=== PATIENT | female | born 1945 | race Caucasian/White ===

== ENCOUNTER 2022-12-18 12:21 | Emergency (ER) | payer MEDICARE, SELFPAY ==
--- NOTE | ~2022-12-18 | CT_ITS ---
EXAMINATION: CT HEAD WITHOUT CONTRAST CLINICAL INFORMATION: Mental status change COMPARISON: None available. TECHNIQUE: Contiguous axial imaging was performed from the skull base to vertex without intravenous administration of contrast. This CT examination was performed using dose optimization techniques as appropriate, variously including the following: *Automated exposure control *Adjustment of mA and/or kV according to patient size (this includes techniques or standardized protocols for targeted exams where dose is matched to indication/reason for exam; i.e. extremities or head) *Use of iterative reconstruction technique DLP: 577 mGy-cm FINDINGS: No intracranial hemorrhage is seen. No abnormal extra-axial fluid collection. No significant mass effect or midline structure shift. Cantu-white matter interface is maintained. There is some prominence of ventricles, sulci, and cisterns consistent with generalized atrophy. Periventricular white matter low density seen consistent with microangiopathy. There is paranasal sinus disease present with opacification of ethmoid air cells left greater than right. There is near complete opacification of the left maxillary sinus. Mastoid air cells are aerated. CT/CT head/brain wo IV con IMPRESSION: No acute intracranial pathology. Atrophy with microangiopathy. Chronic sinusitis
--- NOTE | ~2022-12-18 | XR_ITS ---
EXAMINATION: XR CHEST CLINICAL INFORMATION: Mental status change COMPARISON: None available. TECHNIQUE: AP portable view of the chest was obtained. FINDINGS: There is some retrocardiac density present which may be related to atelectasis or pneumonitis. No pneumothorax or significant pleural effusion is appreciated. Heart normal size. No evidence of pulmonary edema. There is deformity of the proximal left humerus likely related to old healed fracture. There is some prominence of the left superior mediastinum with shift of trachea at the thoracic inlet to the right consistent with enlarged thyroid gland. XR/XR chest 1V IMPRESSION: Retrocardiac density which may relate to atelectasis or pneumonitis.
[2022-12-18 13:02] VITALS: BMI 24.0
[2022-12-18 13:19] VITALS: BP 141/75; PULSE 78; RESP 17; O2SAT 92
--- NOTE | 2022-12-18 13:24 | ECG_ITS ---
Test Reason : AMS Blood Pressure : / mmHG Vent. Rate : 080 BPM Atrial Rate : 080 BPM P-R Int : 126 ms QRS Dur : 114 ms QT Int : 338 ms P-R-T Axes : 042 -43 046 degrees QTc Int : 389 ms Normal sinus rhythm Left axis deviation Moderate voltage criteria for LVH, may be normal variant ( R in aVL , [place] product ) Septal infarct , age undetermined Abnormal ECG When compared with ECG of 06-FEB-2003 17:01, QRS duration has increased Nonspecific T wave abnormality, worse in Lateral leads Referred By: Yolanda King Electronically Signed By:Stephon Rueda
--- NOTE | 2022-12-18 13:26 | ED.GENADULT ---
HPI - General Adult General Chief complaint: Weakness Stated complaint: incresase lethargy weak snf per ems Time Seen by Provider: 12/18/22 13:15 Source: EMS and RN notes reviewed Mode of arrival: EMS Limitations: altered mental status (Advanced dementia.) History of Present Illness HPI narrative: [age] year female came in by EMS from a dementia/psych unit for increases lethargy and disorientation. Patient is disoriented, non historian at this exam patient is unable to provide meaningful history, however patient is answering no to headache, neck pain, chest pain abdominal pain, fever, chills, nausea, vomiting, or diarrhea. However reported by EMS from the halfway the patient been green sputum. Related Data Previous Rx's Medication Instructions Recorded amoxicillin 875 mg-potassium 1 tab PO BID #20 tabs 12/18/22 clavulanate 125 mg tablet doxycycline hyclate 100 mg tablet 100 mg PO BID #20 tabs 12/18/22 Allergies Allergy/AdvReac Type Severity Reaction Status Date / Time morphine Allergy Unknown Verified 07/21/16 00:00 Sulfa (Sulfonamide Allergy Unknown rash/swelli Verified 07/21/16 00:00 Antibiotics) ng morphine Allergy Unknown rash Uncoded 04/20/17 00:00 sulfa drugs Allergy Unknown redness in Uncoded 04/20/17 00:00 face Review of Systems Review of Systems: Yes Unobtainable due to mental condition (Dementia) [facility] Social History Social History Advance Directives: Yes Advance Directives on File: No Physical Exam ED Vital Signs: Vital Signs - 24 hr 12/18/22 13:19 Pulse Rate 78 Respiratory Rate 17 Blood Pressure 141/75 H Pulse Oximetry 92 Oxygen Delivery Method Room Air BMI result Body Mass Index 24.0 Vital signs have been reviewed as appeared to be correct. Blood pressure normal. Heart rate normal. Respiration rate normal. Temperature normal. Oxygen saturation normal. Appearance: Disoriented, lethargic, arousable to her name. No acute distress. Head: Normal external exam. Normocephalic. Atraumatic. No Faulkner signs noted. No raccoon eyes noted Eyes: PERRLA. EOMI. Conjunctiva and sclera normal. Eyelids normal. ENT: TM's Normal. Pharynx normal. Uvula midline. Moist mucous membranes. No trismus noted. No drooling noted. No muffled voice noted. Neck: Normal inspection. Neck supple. FROM. No adenopathy. Thyroid Normal. No meningeal signs. No neck mass noted. CVS: Normal heart rate and rhythm. Heart sound normal. No murmurs noted. Pulses normal throughout. Respiratory: No respiratory distress. Painless inspiration. Breath sounds normal. No wheezes/rales/rhonchi noted. Chest nontender. No accessory muscle usage noted or decreased air movement noted. Abdomen: Soft and nontender. Bowel sounds normal in all 4 quadrants. No distention noted. No organomegaly noted. No visible injury noted. Back: No CVA tenderness. Full range of motion noted. Skin: Skin warm and dry. Normal skin color. Normal skin turgor. No rashes/lesions/lacerations noted. Extremities: No lower extremity edema. Extremities exhibit normal range of motion. Extremities nontender. Neuro: Cranial nerve exam: II-XII are grossly intact No motor deficit. No sensory deficit. Reflexes normal. Course Course Course Narrative: 77-year-old female with advanced dementia reside in a dementia unit, found to have a pneumonia with no sepsis criteria, will start the patient on Augmentin and doxycycline for 10 days. Medications Administered Discontinued Medications Generic Name Dose Route Start Last Admin Trade Name Freq PRN Reason Stop Dose Admin Piperacillin Sod/Tazobactam 50 mls @ 100 mls/hr 12/18/22 14:18 12/18/22 14:44 Sod 3.375 gm/ Sodium Chloride IV 12/18/22 14:47 100 mls/hr ONCE ONE Administration Medical Decision Making Differential Diagnosis Differential Diagnoses: The differential diagnosis associated with the presentation includes (Pneumonia, UTI, electrolyte abnormalities, severe anemia, intracranial pathology.) Admission/Observation Consideration of admission/observation: Escalation of care including admission/observation considered Lab Data MDM Lab Attestation statement: I reviewed the patient's lab results. 12/18/22 13:42 12/18/22 13:42 Labs: Lab Results 12/18/22 12/18/22 12/18/22 Range/Units 13:42 13:42 13:42 WBC 7.7 (4.8-10.8) X10*3/uL RBC 3.89 L (4.20-5.50) X10*6/uL Hgb 11.7 L (12.0-16.0) g/dl Hct 36.4 L (37.0-47.0) % MCV 93.6 (80.0-98.0) fL MCH 30.1 (27.0-33.0) pg MCHC 32.1 (31.0-35.0) g/dl RDW 13.8 (11.0-16.0) % Plt Count 277 (160-400) X10*3/uL MPV 8.1 L (9.4-12.3) fL Immature Gran % (Auto) 0.4 (0.0-0.4) % Neut % (Auto) 71.5 (45-73) % Lymph % (Auto) 17.9 L (20-40) % Franklin % (Auto) 8.5 (2-11) % Eos % (Auto) 1.3 (0-4) % Baso % (Auto) 0.4 (0-2) % Lymph # (Auto) 1.4 (1.2-4.9) X10*3/uL [place] # (Auto) 0.7 (0.1-1.2) X10*3/uL Eos # (Auto) 0.1 (0.0-0.4) X10*3/uL Baso # (Auto) 0.0 (0.0-0.2) X10*3/uL Abs Immat Gran (auto) 0.03 (0.00-0.03) X10*3/uL Absolute Neuts (auto) 5.5 (2.0-8.3) x10*3/uL Absolute Nucleated RBC 0.000 (0.0-0.012) X10*3/uL Nucleated RBC % (auto) 0.0 (0.0-0.2) /100WBC Sodium 143 (135-145) mmol/L Potassium 4.4 (3.3-5.1) mmol/L Chloride 107 (96-108) mmol/L Carbon Dioxide 30 H (22-29) mmol/L Anion Gap 10 L (12-20) BUN 15 (9-16) mg/dL Creatinine 0.77 (0.5-1.4) mg/dL Estim Creat Clear Calc 53.6 Estimated GFR > 60 Random Glucose 97 (60-115) mg/dL Lactic Acid (0.5-2.0) mmol/L Calcium 9.7 (8.4-10.2) mg/dL Total Bilirubin 0.6 (0.0-1.0) mg/dL Direct Bilirubin 0.2 (0.0-0.5) mg/dL AST 18 (5-31) U/L ALT 21 (0-31) U/L Alkaline Phosphatase 174 H (39-117) U/L Troponin I High Sens 8.0 (<3.5-17.0) ng/L B-Natriuretic Peptide (<100) pg/mL Total Protein 6.2 L (6.5-8.0) g/dL Albumin 3.7 (3.5-5.0) g/dL Lipase 38 (8-78) U/L Influenza Type A (PCR) (Negative) Influenza Type B (PCR) (Negative) RSV RNA Qual (PCR) (Negative) SARS-CoV-2 RNA (RT-PCR) (Negative) 12/18/22 12/18/22 12/18/22 Range/Units 13:42 13:42 14:36 WBC (4.8-10.8) X10*3/uL RBC (4.20-5.50) X10*6/uL Hgb (12.0-16.0) g/dl Hct (37.0-47.0) % MCV (80.0-98.0) fL MCH (27.0-33.0) pg MCHC (31.0-35.0) g/dl RDW (11.0-16.0) % Plt Count (160-400) X10*3/uL MPV (9.4-12.3) fL Immature Gran % (Auto) (0.0-0.4) % Neut % (Auto) (45-73) % Lymph % (Auto) (20-40) % Franklin % (Auto) (2-11) % Eos % (Auto) (0-4) % Baso % (Auto) (0-2) % Lymph # (Auto) (1.2-4.9) X10*3/uL Franklin # (Auto) (0.1-1.2) X10*3/uL Eos # (Auto) (0.0-0.4) X10*3/uL Baso # (Auto) (0.0-0.2) X10*3/uL Abs Immat Gran (auto) (0.00-0.03) X10*3/uL Absolute Neuts (auto) (2.0-8.3) x10*3/uL Absolute Nucleated RBC (0.0-0.012) X10*3/uL Nucleated RBC % (auto) (0.0-0.2) /100WBC Sodium (135-145) mmol/L Potassium (3.3-5.1) mmol/L Chloride (96-108) mmol/L Carbon Dioxide (22-29) mmol/L Anion Gap (12-20) BUN (9-16) mg/dL Creatinine (0.5-1.4) mg/dL Estim Creat Clear Calc Estimated GFR Random Glucose (60-115) mg/dL Lactic Acid 0.9 (0.5-2.0) mmol/L Calcium (8.4-10.2) mg/dL Total Bilirubin (0.0-1.0) mg/dL Direct Bilirubin (0.0-0.5) mg/dL AST (5-31) U/L ALT (0-31) U/L Alkaline Phosphatase (39-117) U/L Troponin I High Sens (<3.5-17.0) ng/L B-Natriuretic Peptide 20 (<100) pg/mL Total Protein (6.5-8.0) g/dL Albumin (3.5-5.0) g/dL Lipase (8-78) U/L Influenza Type A (PCR) NEGATIVE (Negative) Influenza Type B (PCR) NEGATIVE (Negative) RSV RNA Qual (PCR) NEGATIVE (Negative) SARS-CoV-2 RNA (RT-PCR) NEGATIVE (Negative) Independent Interpretation I performed an independent interpretation of an: Plain X-Ray (Lungs: Retrocardiac density which may represent infiltrate.) and CT Scan (Head: No acute intracranial pathology.) Radiology Impression Discussion of test interpretation with radiology: I have reviewed the radiologist's reading. Independent Historian Clinical information obtained from an independent historian. History obtained from or confirmed by: Other ([facility] history.) Discharge Plan Discharge Clinical Impression: Pneumonia, Dementia Patient Disposition: Xfer [facility] Instructions: Pneumonia (ED) Prescriptions: New amoxicillin-pot clavulanate 875-125 mg tablet 1 tab PO BID Qty: 20 0RF doxycycline hyclate 100 mg tablet 100 mg PO BID Qty: 20 0RF
[2022-12-18 13:48] LABS: MANUAL DIFF FLAG NO
[2022-12-18 13:51] LABS: Basophils Percent Auto 0.4 % (0-2); Eosinophils Absolute Auto 0.1 X10*3/uL (0.0-0.4); Eosinophils Percent Auto 1.3 % (0-4); Hematocrit 36.4 % (37.0-47.0); Hemoglobin 11.7 g/dl (12.0-16.0); Imm Gran Abs Auto 0.03 X10*3/uL (0.00-0.03); Imm Gran Pct Auto 0.4 % (0.0-0.4); Lymphocytes Absolute Auto 1.4 X10*3/uL (1.2-4.9); Lymphocytes Percent Auto 17.9 % (20-40); Mean Corpuscular HGB Conc 32.1 g/dl (31.0-35.0); Mean Corpuscular Hemoglobin 30.1 pg (27.0-33.0); Mean Corpuscular Volume 93.6 fL (80.0-98.0); Mean Platelet Volume 8.1 fL (9.4-12.3); Monocytes Absolute Auto 0.7 X10*3/uL (0.1-1.2); Monocytes Percent Auto 8.5 % (2-11); Neutrophils Absolute Auto 5.5 x10*3/uL (2.0-8.3); Neutrophils Percent Auto 71.5 % (45-73); Platelet Count 277 X10*3/uL (160-400); Red Blood Count 3.89 X10*6/uL (4.20-5.50); Red Cell Distribution Width 13.8 % (11.0-16.0); White Blood Count 7.7 X10*3/uL (4.8-10.8)
[2022-12-18 14:08] LABS: Alanine Aminotransferase 21 U/L (0-31); Albumin Level 3.7 g/dL (3.5-5.0); Alkaline Phosphatase 174 U/L (39-117); Anion Gap 10 (12-20); Aspartate Amino Transferase 18 U/L (5-31); Bilirubin Direct 0.2 mg/dL (0.0-0.5); Bilirubin Total 0.6 mg/dL (0.0-1.0); Blood Urea Nitrogen 15 mg/dL (9-16); Calcium 9.7 mg/dL (8.4-10.2); Carbon Dioxide 30 mmol/L (22-29); Chloride 107 mmol/L (96-108); Creatinine Clr Calc Pharmacy 53.6; Estimated Glomerular Filt Rate > 60; Glucose Random 97 mg/dL (60-115); Lipase 38 U/L (8-78); Potassium 4.4 mmol/L (3.3-5.1); Sodium 143 mmol/L (135-145); Total Protein 6.2 g/dL (6.5-8.0)
[2022-12-18 14:13] LABS: B Type Natriuretic Peptide 20 pg/mL (<100)
[2022-12-18 14:31] LABS: Influenza A PCR NEGATIVE (Negative); Influenza B PCR NEGATIVE (Negative); Resp Syncy Virus RNA Qual PCR NEGATIVE (Negative); SARS COV2 PCR INHOUSE NEGATIVE (Negative)
[2022-12-18] MEDS: Piperacillin Sodium/Tazobactam 3.375 GM in 0.9 % Sodium Chloride 50 ML IV (14:44)
[2022-12-18 14:54] LABS: Lactic Acid 0.9 mmol/L (0.5-2.0)
[2022-12-18 15:51] VITALS: BP 117/59; PULSE 75; RESP 18; O2SAT 93
[2022-12-18] MEDS: Doxycycline Monohydrate 100 MG CAPSULE PO (16:40)
== END 2022-12-18 18:24 | disposition skilled nursing facility (03) ==
PROVIDERS: Emergency Provider Emergency Medicine
DX: J18.9 Pneumonia, unspecified organism (principal); F03.90 Unspecified dementia, unspecified severity, without behavioral disturbance, psychotic disturbance, mood disturbance, and anxiety; Z20.822 Contact with and (suspected) exposure to COVID-19; Z20.828 Contact with and (suspected) exposure to other viral communicable diseases
CPT/HCPCS: 0241U; 36415; 70450; 71045; 80048; 80076; 83605; 83690; 83880; 84484; 85025; 87040; 93005; 96365; 99284; J2543

== ENCOUNTER 2023-01-24 19:23 | Emergency (ER) | payer MEDICARE, SELFPAY ==
--- NOTE | ~2023-01-24 | XR_ITS ---
EXAMINATION: XR ABDOMEN KUB CLINICAL INDICATION: Fecal impaction COMPARISON: None available. TECHNIQUE: AP view of the abdomen. FINDINGS: There is a large volume of stool present throughout the colon. No evidence of bowel obstruction. Calcified uterine fibroids are present. Phleboliths are noted in the pelvis. Degenerative changes are present in the spine with scoliosis convex to the right. XR/XR KUB IMPRESSION: Large stool burden throughout the colon. No evidence of bowel obstruction.
--- NOTE | ~2023-01-24 | CT_ITS ---
EXAMINATION: CT HEAD WITHOUT CONTRAST CLINICAL INFORMATION: Altered mental status. COMPARISON: CT head from 12/18/2022. TECHNIQUE: Contiguous axial imaging was performed from the skull base to vertex without intravenous administration of contrast. This CT examination was performed using dose optimization techniques as appropriate, variously including the following: *Automated exposure control. *Adjustment of mA and/or kV according to patient size (this includes techniques or standardized protocols for targeted exams where dose is matched to indication/reason for exam; i.e. extremities or head). *Use of iterative reconstruction technique. DLP: 531 mGy-cm FINDINGS: There is chronic encephalomalacia within the right middle frontal gyrus with associated volume loss. No additional loss of downey-white matter differentiation. No evidence of acute intracranial hemorrhage. Scattered and partially confluent hypoattenuation in the periventricular and deep white matter are consistent with moderate microangiopathy. Proportional prominence of the ventricles and sulcal spaces without evidence of obstructive hydrocephalus. No abnormal mass effect or midline shift. No extra-axial fluid collections. Calcific atherosclerotic disease of the intracranial internal carotid and vertebral arteries. No hyperdense vessel sign. No acute soft tissue or osseous abnormalities. Mild mucosal thickening of the paranasal sinuses. The mastoid air cells and middle ear cavities are clear. Bilateral lens extractions. CT/CT head/brain wo IV con IMPRESSION: 1. No evidence of acute intracranial hemorrhage or edematous territorial infarction. 2. Small chronic region of encephalomalacia of the right middle frontal gyrus. Moderate underlying microangiopathy and generalized cerebral volume loss.
[2023-01-24 19:28] VITALS: BP 144/80; PULSE 92; O2SAT 97
--- NOTE | 2023-01-24 19:37 | ECG_ITS ---
Test Reason : AMS Blood Pressure : / mmHG Vent. Rate : 079 BPM Atrial Rate : 079 BPM P-R Int : 132 ms QRS Dur : 110 ms QT Int : 380 ms P-R-T Axes : 043 -41 055 degrees QTc Int : 435 ms Normal sinus rhythm Left axis deviation Moderate voltage criteria for LVH, may be normal variant ( R in aVL , [place] product ) Nonspecific T wave abnormality Abnormal ECG When compared with ECG of 18-DEC-2022 13:30, No significant change was found Referred By: Generic ED Physician Electronically Signed By:EDA LOVE
[2023-01-24 19:41] VITALS: BP 137/70; PULSE 80; RESP 16; TEMP 37.2; O2SAT 93; BMI 31.7
--- NOTE | 2023-01-24 19:44 | ED_ITS ---
HPI - Altered Mental Status General Chief Complaint: Altered Mental Status Stated Complaint: AMS Time Seen by Provider: 01/24/23 19:42 Source: family and EMS Mode of arrival: EMS Limitations: altered mental status History of Present Illness HPI narrative: Patient with severe dementia came from assisted for lower abdominal discomfort patient is forgetful per EMS patient was having blank stare and having slurred speech but per family patient is severely demented and which is normal for her no fever no vomiting no diarrhea Related Data Previous Rx's Medication Instructions Recorded amoxicillin 875 mg-potassium 1 tab PO BID #20 tabs 12/18/22 clavulanate 125 mg tablet doxycycline hyclate 100 mg tablet 100 mg PO BID #20 tabs 12/18/22 cefuroxime axetil 250 mg tablet 250 mg PO BID 7 days #14 tabs 01/25/23 polyethylene glycol 3350 17 17 g PO DAILY #510 grams 01/25/23 gram/dose oral powder (Miralax) Allergies Allergy/AdvReac Type Severity Reaction Status Date / Time morphine Allergy Unknown Verified 07/21/16 00:00 Sulfa (Sulfonamide Allergy Unknown rash/swelli Verified 07/21/16 00:00 Antibiotics) ng morphine Allergy Unknown rash Uncoded 04/20/17 00:00 sulfa drugs Allergy Unknown redness in Uncoded 04/20/17 00:00 face Review of Systems Review of Systems: Yes Unobtainable due to mental status PMFSH Social History Social History Advance Directives: No Advance Directives Information Provided: Yes Physical Exam ED Vital Signs: Vital Signs - 24 hr 01/24/23 19:41 01/24/23 23:28 Temperature 99.0 F Pulse Rate 80 86 Respiratory Rate 16 16 Blood Pressure 137/70 152/77 H Pulse Oximetry 93 97 Oxygen Delivery Method Room Air Room Air BMI result Body Mass Index 31.7 Appearance: Alert. Oriented X1-2. No acute distress. Eyes: PERRLA, No Nystagmus ENT: Pharynx normal. Oral Mucosa moist Neck: Normal inspection. Neck supple. CVS: Normal heart rate and rhythm. Pulses normal. Respiratory: No respiratory distress. Equal air entry bilateral, no wheezing/rales/rhonchi Abdomen: Soft mild suprapubic tenderness, Bowel sounds are present, no mass palpable, no CVA tenderness Skin: Skin warm and dry. Normal skin color. Normal skin turgor. Extremities: No lower extremity edema. No calf tenderness Neuro: Oriented X 1-2. No motor deficit. No sensory deficit.No cerebellar signs , cranial nerves II-XII intact Medications Administered Discontinued Medications Generic Name Dose Route Start Last Admin Trade Name Freq PRN Reason Stop Dose Admin Ceftriaxone Sodium 1 gm/ 50 mls @ 100 mls/hr 01/24/23 23:42 01/24/23 23:59 Sodium Chloride IV 01/25/23 00:11 100 mls/hr ONCE ONE Administration Medical Decision Making Medical Decision Making [facility] Narrative: Patient with severe dementia with lower abdominal pain noticed to have significant UTI without any leukocytosis also does have constipation will give dose of Rocephin discharge patient back to assisted on Ceftin advised to continue stool softener Lab Data [facility] Lab Attestation statement: I reviewed the patient's lab results. 01/24/23 19:58 01/24/23 19:58 Labs: Lab Results 01/24/23 01/24/23 01/24/23 Range/Units 19:40 19:58 19:58 WBC 5.5 (4.8-10.8) X10*3/uL RBC 3.67 L (4.20-5.50) X10*6/uL Hgb 10.8 L (12.0-16.0) g/dl Hct 33.8 L (37.0-47.0) % MCV 92.1 (80.0-98.0) fL MCH 29.4 (27.0-33.0) pg MCHC 32.0 (31.0-35.0) g/dl RDW 14.4 (11.0-16.0) % Plt Count 253 (160-400) X10*3/uL MPV 8.2 L (9.4-12.3) fL Immature Gran % (Auto) 0.4 (0.0-0.4) % Neut % (Auto) 56.2 (45-73) % Lymph % (Auto) 29.2 (20-40) % [place] % (Auto) 11.0 (2-11) % Eos % (Auto) 2.7 (0-4) % Baso % (Auto) 0.5 (0-2) % Lymph # (Auto) 1.6 (1.2-4.9) X10*3/uL [place] # (Auto) 0.6 (0.1-1.2) X10*3/uL Eos # (Auto) 0.2 (0.0-0.4) X10*3/uL Baso # (Auto) 0.0 (0.0-0.2) X10*3/uL Abs Immat Gran (auto) 0.02 (0.00-0.03) X10*3/uL Absolute Neuts (auto) 3.1 (2.0-8.3) x10*3/uL Absolute Nucleated RBC 0.000 (0.0-0.012) X10*3/uL Nucleated RBC % (auto) 0.0 (0.0-0.2) /100WBC Sodium 140 (135-145) mmol/L Potassium 4.4 (3.3-5.1) mmol/L Chloride 103 (96-108) mmol/L Carbon Dioxide 26 (22-29) mmol/L Anion Gap 15 (12-20) BUN 14 (9-16) mg/dL Creatinine 0.84 (0.5-1.4) mg/dL Estim Creat Clear Calc 55.3 Estimated GFR > 60 POC Glucose 138 H (60-115) mg/dL Random Glucose 127 H (60-115) mg/dL Lactic Acid (0.5-2.0) mmol/L Calcium 9.9 (8.4-10.2) mg/dL Troponin I High Sens (<3.5-17.0) ng/L Urine Color Urine Appearance Urine pH (5.0-9.0) Ur Specific [place] (1.005-1.025) Urine Protein (Neg-Trace) mg/dL Urine Glucose (UA) (Negative) mg/dL Urine Ketones (Negative) mg/dL Urine Blood (Negative) Urine Nitrite (Negative) Ur Leukocyte Esterase (Negative) Urine RBC (0-2) /HPF Urine WBC (0-5) /HPF Ur Squamous Epith Cells (0-2) /HPF Urine Bacteria (None Seen) Hyaline Casts (0-2) /LPF 01/24/23 01/24/23 01/24/23 Range/Units 19:58 21:25 23:16 WBC (4.8-10.8) X10*3/uL RBC (4.20-5.50) X10*6/uL Hgb (12.0-16.0) g/dl Hct (37.0-47.0) % MCV (80.0-98.0) fL MCH (27.0-33.0) pg MCHC (31.0-35.0) g/dl RDW (11.0-16.0) % Plt Count (160-400) X10*3/uL MPV (9.4-12.3) fL Immature Gran % (Auto) (0.0-0.4) % Neut % (Auto) (45-73) % Lymph % (Auto) (20-40) % [place] % (Auto) (2-11) % Eos % (Auto) (0-4) % Baso % (Auto) (0-2) % Lymph # (Auto) (1.2-4.9) X10*3/uL [place] # (Auto) (0.1-1.2) X10*3/uL Eos # (Auto) (0.0-0.4) X10*3/uL Baso # (Auto) (0.0-0.2) X10*3/uL Abs Immat Gran (auto) (0.00-0.03) X10*3/uL Absolute Neuts (auto) (2.0-8.3) x10*3/uL Absolute Nucleated RBC (0.0-0.012) X10*3/uL Nucleated RBC % (auto) (0.0-0.2) /100WBC Sodium (135-145) mmol/L Potassium (3.3-5.1) mmol/L Chloride (96-108) mmol/L Carbon Dioxide (22-29) mmol/L Anion Gap (12-20) BUN (9-16) mg/dL Creatinine (0.5-1.4) mg/dL Estim Creat Clear Calc Estimated GFR POC Glucose (60-115) mg/dL Random Glucose (60-115) mg/dL Lactic Acid 1.2 (0.5-2.0) mmol/L Calcium (8.4-10.2) mg/dL Troponin I High Sens 4.1 (<3.5-17.0) ng/L Urine Color Straw Urine Appearance Turbid Urine pH 7.0 (5.0-9.0) Ur Specific [place] 1.015 (1.005-1.025) Urine Protein 30 (1+) H (Neg-Trace) mg/dL Urine Glucose (UA) Negative (Negative) mg/dL Urine Ketones Negative (Negative) mg/dL Urine Blood Moderate (2+) H (Negative) Urine Nitrite Negative (Negative) Ur Leukocyte Esterase Large (3+) H (Negative) Urine RBC 3-5 H (0-2) /HPF Urine WBC 11-20 H (0-5) /HPF Ur Squamous Epith Cells >20 (0-2) /HPF Urine Bacteria 3+ (None Seen) Hyaline Casts 0-2 (0-2) /LPF Discharge Plan Discharge Clinical Impression: Acute UTI, Constipation Patient Disposition: Xfer [facility] Transfer Details: Workup showed constipation and UTI Instructions: Constipation (ED), Urinary Tract Infection in Women (ED) Additional Instructions: Take Antibiotic as prescribed Drink plenty of fluid Prescriptions: New cefuroxime axetil 250 mg tablet 250 mg PO BID 7 Days Qty: 14 0RF polyethylene glycol 3350 [Miralax] 17 gram/dose powder 17 g PO DAILY Qty: 510 0RF No Action amoxicillin-pot clavulanate 875-125 mg tablet 1 tab PO BID Qty: 20 0RF doxycycline hyclate 100 mg tablet 100 mg PO BID Qty: 20 0RF
[2023-01-24 19:47] LABS: Glucose, Whole Blood 138 mg/dL (60-115)
[2023-01-24 20:05] LABS: MANUAL DIFF FLAG NO
[2023-01-24 20:24] LABS: Basophils Percent Auto 0.5 % (0-2); Eosinophils Absolute Auto 0.2 X10*3/uL (0.0-0.4); Eosinophils Percent Auto 2.7 % (0-4); Hematocrit 33.8 % (37.0-47.0); Hemoglobin 10.8 g/dl (12.0-16.0); Imm Gran Abs Auto 0.02 X10*3/uL (0.00-0.03); Imm Gran Pct Auto 0.4 % (0.0-0.4); Lymphocytes Absolute Auto 1.6 X10*3/uL (1.2-4.9); Lymphocytes Percent Auto 29.2 % (20-40); Mean Corpuscular Hemoglobin 29.4 pg (27.0-33.0); Mean Corpuscular Volume 92.1 fL (80.0-98.0); Mean Platelet Volume 8.2 fL (9.4-12.3); Monocytes Absolute Auto 0.6 X10*3/uL (0.1-1.2); Neutrophils Absolute Auto 3.1 x10*3/uL (2.0-8.3); Neutrophils Percent Auto 56.2 % (45-73); Platelet Count 253 X10*3/uL (160-400); Red Blood Count 3.67 X10*6/uL (4.20-5.50); Red Cell Distribution Width 14.4 % (11.0-16.0); White Blood Count 5.5 X10*3/uL (4.8-10.8)
[2023-01-24 20:28] LABS: Anion Gap 15 (12-20); Blood Urea Nitrogen 14 mg/dL (9-16); Calcium 9.9 mg/dL (8.4-10.2); Carbon Dioxide 26 mmol/L (22-29); Chloride 103 mmol/L (96-108); Creatinine Clr Calc Pharmacy 55.3; Estimated Glomerular Filt Rate > 60; Glucose Random 127 mg/dL (60-115); Potassium 4.4 mmol/L (3.3-5.1); Sodium 140 mmol/L (135-145); Troponin-I High Sensitivity 4.1 ng/L (<3.5-17.0)
[2023-01-24 21:41] LABS: Lactic Acid 1.2 mmol/L (0.5-2.0)
[2023-01-24 23:28] VITALS: BP 152/77; PULSE 86; RESP 16; O2SAT 97
[2023-01-24 23:29] LABS: Appearance Urine Turbid; Color Urine Straw; Glucose Urine UA Negative (Negative); Leukocyte Esterase Urine Large (3+) (Negative); Nitrite Urine Negative (Negative); Specific Gravity - Urine 1.015 (1.005-1.025); UMIC TRIGGER UACC YES; Urine Blood Moderate (2+) (Negative); Urine Ketones Negative (Negative); Urine Protein 30 (1+) mg/dL (Neg-Trace)
--- NOTE | 2023-01-24 23:29 | MHC.EDTECH ---
THIS PCT ASSUMED CARE OF PT AT 2300 ,VITAlS SIGN TAKEN ,URINE SAMPLE COLLECTED AND SENT TO LAB ,PATIENT WAS INCONIENT OF URINE ,CARE GIVEN ,BEDDING CHANGE ,PURE WICK IN PLACE ,PT IS VERY RESTLESS ,RN AWARE ,PT FRIEND AT BEDSIDE .
[2023-01-24 23:38] LABS: UACC Culture Trigger YES
[2023-01-24 23:39] LABS: Bacteria Urine 3+ (None Seen); Hyaline Casts Urine 0-2 /LPF (0-2); Squamous Epithelial Cell Urine >20 /HPF (0-2)
[2023-01-24] MEDS: cefTRIAXone sodium 1 GM in 0.9 % Sodium Chloride 50 ML IV (23:59)
--- NOTE | 2023-01-25 01:08 | MHC.EDTECH ---
call out to cortney to book transport back to [facility] [place] [facility] at [phone]
[2023-01-25] MEDS: Milk of Magnesia 30 ML ORAL.SUSP PO (01:14)
[2023-01-25 02:00] VITALS: BP 145/76; PULSE 98; RESP 16; TEMP 36.8; O2SAT 97
[2023-01-25 07:15] VITALS: BP 142/79; PULSE 89; RESP 16; TEMP 36.8; O2SAT 92
--- NOTE | 2023-01-25 07:56 | PC.NURSE ---
PT WAS MEDICATED WITH FIRST ORAL DOSE OF ANTIBIOTICS, SHE WAS INCONTINENT OF URINE, BED AND PATIENT WERE CHANGED. SHE IS ALERT AND AWARE, TOLERATING PO INTAKE. AWAITING TRANSPORT BACK TO FACILITY
== END 2023-01-25 08:49 | disposition skilled nursing facility (03) ==
PROVIDERS: Emergency Provider Internal Medicine
DX: K59.00 Constipation, unspecified (principal); N39.0 Urinary tract infection, site not specified; R10.30 Lower abdominal pain, unspecified
CPT/HCPCS: 36415; 51701; 70450; 74018; 80048; 81001; 82947; 83605; 84484; 85025; 87086; 93005; 96365; 99284; 99285; J0696

== ENCOUNTER 2023-03-23 19:47 | Emergency (ER) | payer MEDICARE, SELFPAY ==
--- NOTE | ~2023-03-23 | CT_ITS ---
EXAMINATION: CT ABDOMEN AND PELVIS WITHOUT CONTRAST CLINICAL INFORMATION: Abdominal pain with question of appendicitis COMPARISON: Renal ultrasound 05/22/2022 TECHNIQUE: Multidetector volumetric imaging was performed from the superior aspect of the liver through the pubic symphysis. Sagittal and coronal reformatted images were obtained on the technologist's workstation. This CT examination was performed using dose optimization techniques as appropriate, variously including the following: *Automated exposure control *Adjustment of mA and/or kV according to patient size (this includes techniques or standardized protocols for targeted exams where dose is matched to indication/reason for exam; i.e. extremities or head) *Use of iterative reconstruction technique DLP: 674 mGy-cm FINDINGS: LUNG BASES: There is bibasilar atelectasis. LIVER, GALLBLADDER, AND BILIARY TREE: The liver is normal in size, shape, and attenuation. No focal hepatic lesion or biliary ductal dilatation is present. The gallbladder is unremarkable with no evidence of radiopaque gallstones, gallbladder wall thickening, or obvious pericholecystic inflammatory changes. PANCREAS: Unremarkable. SPLEEN: Unremarkable. ADRENAL GLANDS: There is a water density 1.3 cm nodule in the left adrenal gland consistent with a benign adenoma and needs no additional imaging or follow-up. KIDNEYS AND URETERS: The kidneys are normal in size, shape, and attenuation. No hydronephrosis, hydroureter, or calculi seen. Multiple bilateral benign Bosniak class I renal cysts are noted, the largest measuring 5.7 cm at the upper pole on the right which require no additional imaging or follow-up. There is a benign right lower pole 1.7 cm Bosniak class II hyperattenuating cyst present which also requires no further imaging or follow-up. No solid renal masses are seen. BLADDER: Unremarkable. GASTROINTESTINAL TRACT: The small and large bowel are unremarkable. The appendix is not seen but there is no evidence of appendicitis evidence of appendicitis. ABDOMINAL WALL: No significant hernia is appreciated. LYMPH NODES: No retroperitoneal lymphadenopathy. VASCULAR: Calcific atherosclerotic change present in the aorta and iliofemoral vessels without aneurysm. PELVIC VISCERA: A pessary is present. And anteverted uterus tilted to the right may be present. Coarse calcifications most likely in fibroids. OSSEOUS STRUCTURES: Mild scoliosis convex to the right. There is generalized osteopenia and some mild degenerative changes in spine. CT/CT abdomen pelvis wo IV con IMPRESSION: A cause for the patient's diffuse abdominal pain has not been found. The appendix is not seen but there is no evidence of appendicitis. Other incidental findings as described above. Fleischner guidelines were followed.
[2023-03-23 19:49] VITALS: BP 156/90; PULSE 85; O2SAT 94
[2023-03-23 19:56] VITALS: BP 129/76; PULSE 81; RESP 18; TEMP 37.3; O2SAT 94; BMI 25.1
[2023-03-23 20:28] LABS: MANUAL DIFF FLAG NO
[2023-03-23 20:30] LABS: Basophils Percent Auto 0.3 % (0-2); Eosinophils Absolute Auto 0.2 X10*3/uL (0.0-0.4); Eosinophils Percent Auto 2.2 % (0-4); Hematocrit 33.6 % (37.0-47.0); Hemoglobin 10.8 g/dl (12.0-16.0); Imm Gran Abs Auto 0.03 X10*3/uL (0.00-0.03); Imm Gran Pct Auto 0.3 % (0.0-0.4); Lymphocytes Absolute Auto 1.4 X10*3/uL (1.2-4.9); Lymphocytes Percent Auto 15.5 % (20-40); Mean Corpuscular HGB Conc 32.1 g/dl (31.0-35.0); Mean Corpuscular Hemoglobin 29.5 pg (27.0-33.0); Mean Corpuscular Volume 91.8 fL (80.0-98.0); Mean Platelet Volume 8.1 fL (9.4-12.3); Monocytes Absolute Auto 0.9 X10*3/uL (0.1-1.2); Monocytes Percent Auto 10.2 % (2-11); Neutrophils Absolute Auto 6.3 x10*3/uL (2.0-8.3); Neutrophils Percent Auto 71.5 % (45-73); Platelet Count 222 X10*3/uL (160-400); Red Blood Count 3.66 X10*6/uL (4.20-5.50); Red Cell Distribution Width 14.1 % (11.0-16.0); White Blood Count 8.8 X10*3/uL (4.8-10.8)
[2023-03-23 20:32] LABS: Appearance Urine Clear; Color Urine Yellow; Glucose Urine UA Negative (Negative); Leukocyte Esterase Urine Negative (Negative); Nitrite Urine Negative (Negative); PH 6.5 (5.0-9.0); Specific Gravity - Urine 1.015 (1.005-1.025); Urine Blood Negative (Negative); Urine Ketones Negative (Negative); Urine Protein Negative (Neg-Trace)
[2023-03-23 20:54] LABS: Alanine Aminotransferase 21 U/L (0-31); Albumin Level 3.6 g/dL (3.5-5.0); Alkaline Phosphatase 162 U/L (39-117); Anion Gap 14 (12-20); Aspartate Amino Transferase 20 U/L (5-31); Bilirubin Total 0.3 mg/dL (0.0-1.0); Blood Urea Nitrogen 10 mg/dL (9-16); Calcium 9.6 mg/dL (8.4-10.2); Carbon Dioxide 27 mmol/L (22-29); Chloride 103 mmol/L (96-108); Creatinine Clr Calc Pharmacy 56.7; Estimated Glomerular Filt Rate > 60; Glucose Random 125 mg/dL (60-115); Potassium 3.9 mmol/L (3.3-5.1); Sodium 140 mmol/L (135-145); Total Protein 6.5 g/dL (6.5-8.0)
--- NOTE | 2023-03-23 21:43 | ED.ABDPAIN ---
HPI - Abdominal Pain General Chief Complaint: Abdominal Pain Stated Complaint: LOWER BACK PAIN Time Seen by Provider: 03/23/23 21:36 Source: patient, family (Healthcare proxy.) and EMS Mode of arrival: EMS Limitations: physical limitation History of Present Illness HPI narrative: 77-year-old female came in by EMS from dementia/psych Unit for evaluation of abdominal pain. Patient patient is a poor historian secondary to advanced Alzheimer dementia staff was trying to put the patient a bed patient was complaining of lower abdominal pain which is dressed by the patient, patient in the emergency department setting in mild distress due to lower abdominal pain, reportedly no nausea, no vomiting, no diarrhea last bowel movement was 2 days ago. Patient had similar symptoms in the past when she had UTI. No history of abdominal surgery. Related Data Home Medications Medication Instructions Recorded Confirmed amlodipine 10 mg tablet 10 mg PO DAILY 03/23/23 03/23/23 atorvastatin 20 mg tablet 20 mg PO DAILY 03/23/23 03/23/23 cholecalciferol (vitamin D3) 25 25 mcg PO DAILY 03/23/23 03/23/23 mcg (1,000 unit) tablet cyanocobalamin (vitamin B-12) 2,500 mcg PO DAILY 03/23/23 03/23/23 2,500 mcg tablet duloxetine 60 mg capsule,delayed 60 mg PO DAILY 03/23/23 03/23/23 release mirabegron 50 mg tablet,extended 50 mg PO DAILY 03/23/23 03/23/23 release 24 hr (Myrbetriq) risperidone 0.5 mg tablet 0.5 mg PO BID 03/23/23 03/23/23 vitamin A-vitamin C-vit E-min 1 tab PO DAILY 03/23/23 03/23/23 tablet Allergies Allergy/AdvReac Type Severity Reaction Status Date / Time morphine Allergy Unknown Verified 07/21/16 00:00 Sulfa (Sulfonamide Allergy Unknown rash/swelli Verified 07/21/16 00:00 Antibiotics) ng morphine Allergy Unknown rash Uncoded 04/20/17 00:00 sulfa drugs Allergy Unknown redness in Uncoded 04/20/17 00:00 face Review of Systems Review of Systems Yes Unobtainable due to mental status PMFSH Social History Social History Alcohol intake: never Smoked in Last 30 Days: No Use of substances other than those prescribed or required for medical reasons: No Advance Directives: Yes Advance Directives Information Provided: Yes Physical Exam ED Vital Signs: Vital Signs - 24 hr 03/23/23 19:56 Temperature 99.1 F Pulse Rate 81 Respiratory Rate 18 Blood Pressure 129/76 Pulse Oximetry 94 Oxygen Delivery Method Room Air BMI result Body Mass Index 25.1 Vital signs have been reviewed as appeared to be correct. Blood pressure normal. Heart rate normal. Respiration rate normal. Temperature normal. Oxygen saturation normal. Appearance: No acute distress. Head: Normal external exam. Normocephalic. Atraumatic. No Faulkner signs noted. No raccoon eyes noted Eyes: PERRLA. EOMI. Conjunctiva and sclera normal. Eyelids normal. ENT: TM's Normal. Pharynx normal. Uvula midline. Moist mucous membranes. No trismus noted. No drooling noted. No muffled voice noted. Neck: Normal inspection. Neck supple. FROM. No adenopathy. Thyroid Normal. No meningeal signs. No neck mass noted. CVS: Normal heart rate and rhythm. Heart sound normal. No murmurs noted. Pulses normal throughout. Respiratory: No respiratory distress. Painless inspiration. Breath sounds normal. No wheezes/rales/rhonchi noted. Chest nontender. No accessory muscle usage noted or decreased air movement noted. Abdomen: Soft and nontender. Bowel sounds normal in all 4 quadrants. No distention noted. No organomegaly noted. No visible injury noted. Back: No CVA tenderness. Full range of motion noted. Skin: Skin warm and dry. Normal skin color. Normal skin turgor. No rashes/lesions/lacerations noted. Extremities: No lower extremity edema. Extremities exhibit normal range of motion. Extremities nontender. Neuro: Cranial nerve exam: II-XII are grossly intact No motor deficit. No sensory deficit. Reflexes normal. Course Course Course Narrative: 77-year-old female with advanced dementia and poor historian came in for abdominal pain, labs are unremarkable, CT of the abdomen and pelvis not significant for intra-abdominal pathology. Will discharge to the group home. Medical Decision Making Differential Diagnosis Differential Diagnoses: The differential diagnosis associated with the presentation includes (Acute appendicitis, colitis, diverticulitis, pancreatitis, electrolyte abnormalities, anemia, UTI.) Admission/Observation Consideration of admission/observation: Escalation of care including admission/observation considered Lab Data MDM Lab Attestation statement: I reviewed the patient's lab results. 03/23/23 20:18 03/23/23 20:18 Labs: Lab Results 03/23/23 03/23/23 03/23/23 Range/Units 20:18 20:18 20:18 WBC 8.8 (4.8-10.8) X10*3/uL RBC 3.66 L (4.20-5.50) X10*6/uL Hgb 10.8 L (12.0-16.0) g/dl Hct 33.6 L (37.0-47.0) % MCV 91.8 (80.0-98.0) fL MCH 29.5 (27.0-33.0) pg MCHC 32.1 (31.0-35.0) g/dl RDW 14.1 (11.0-16.0) % Plt Count 222 (160-400) X10*3/uL MPV 8.1 L (9.4-12.3) fL Immature Gran % (Auto) 0.3 (0.0-0.4) % Neut % (Auto) 71.5 (45-73) % Lymph % (Auto) 15.5 L (20-40) % [place] % (Auto) 10.2 (2-11) % Eos % (Auto) 2.2 (0-4) % Baso % (Auto) 0.3 (0-2) % Lymph # (Auto) 1.4 (1.2-4.9) X10*3/uL [place] # (Auto) 0.9 (0.1-1.2) X10*3/uL Eos # (Auto) 0.2 (0.0-0.4) X10*3/uL Baso # (Auto) 0.0 (0.0-0.2) X10*3/uL Abs Immat Gran (auto) 0.03 (0.00-0.03) X10*3/uL Absolute Neuts (auto) 6.3 (2.0-8.3) x10*3/uL Absolute Nucleated RBC 0.000 (0.0-0.012) X10*3/uL Nucleated RBC % (auto) 0.0 (0.0-0.2) /100WBC Sodium 140 (135-145) mmol/L Potassium 3.9 (3.3-5.1) mmol/L Chloride 103 (96-108) mmol/L Carbon Dioxide 27 (22-29) mmol/L Anion Gap 14 (12-20) BUN 10 (9-16) mg/dL Creatinine 0.82 (0.5-1.4) mg/dL Estim Creat Clear Calc 56.7 Estimated GFR > 60 Random Glucose 125 H (60-115) mg/dL Calcium 9.6 (8.4-10.2) mg/dL Total Bilirubin 0.3 (0.0-1.0) mg/dL AST 20 (5-31) U/L ALT 21 (0-31) U/L Alkaline Phosphatase 162 H (39-117) U/L Total Protein 6.5 (6.5-8.0) g/dL Albumin 3.6 (3.5-5.0) g/dL Urine Color Yellow Urine Appearance Clear Urine pH 6.5 (5.0-9.0) Ur Specific [place] 1.015 (1.005-1.025) Urine Protein Negative (Neg-Trace) mg/dL Urine Glucose (UA) Negative (Negative) mg/dL Urine Ketones Negative (Negative) mg/dL Urine Blood Negative (Negative) Urine Nitrite Negative (Negative) Ur Leukocyte Esterase Negative (Negative) Independent Interpretation I performed an independent interpretation of an: CT Scan (Abdomen pelvis: No acute pathology.) Radiology Impression Discussion of test interpretation with radiology: I have reviewed the radiologist's reading. (A cause for the patient's diffuse abdominal pain has not been found. The appendix is not seen but there is no evidence of appendicitis. Other incidental findings as described above. ) Chronic Conditions Patient?s care impacted by: Other (Severe dementia.) Discharge Plan Discharge Clinical Impression: Abdominal pain Patient Disposition: er [facility] Instructions: Abdominal Pain (ED) Prescriptions: No Action atorvastatin 20 mg tablet 20 mg PO DAILY amlodipine 10 mg tablet 10 mg PO DAILY risperidone 0.5 mg tablet 0.5 mg PO BID Ocuvite Tablet 1 tab PO DAILY duloxetine 60 mg capsule,delayed release(DR/EC) 60 mg PO DAILY cholecalciferol (vitamin D3) 25 mcg (1,000 unit) Tablet 25 mcg PO DAILY Myrbetriq 50 mg tablet extended release 24 hr 50 mg PO DAILY cyanocobalamin (vitamin B-12) 2,500 mcg Tablet 2,500 mcg PO DAILY
--- NOTE | 2023-03-23 22:11 | PHA.MEDREC ---
Pharmacy Consult ? Medication Reconciliation Pharmacy has completed the medication reconciliation. Patient had medication list from the [facility]. All match claim history except Vesicare has not been filled and is only a prescription medications therefore did not include on med rec. Rosanna Quezada, RadhaD
--- NOTE | 2023-03-23 23:54 | MHC.EDTECH ---
call out to [facility] at [phone] to book transport for pt back to sn[facility], estimated eta given was 0130
[2023-03-24 00:19] VITALS: BP 149/74; PULSE 84; RESP 17; TEMP 37.1; O2SAT 92
== END 2023-03-24 02:27 | disposition skilled nursing facility (03) ==
PROVIDERS: Emergency Provider Emergency Medicine
DX: M54.50 Low back pain, unspecified (principal); R10.9 Unspecified abdominal pain; R10.2 Pelvic and perineal pain; Z79.899 Other long term (current) drug therapy
CPT/HCPCS: 36415; 74176; 80053; 81003; 85025; 99284

== ENCOUNTER 2023-03-24 19:18 | Emergency (ER) | payer MEDICARE, SELFPAY ==
[2023-03-24 19:25] VITALS: BP 141/76; BP 148/86; PULSE 81; PULSE 91; RESP 17; TEMP 37.2; O2SAT 94; O2SAT 95; BMI 26.7
--- NOTE | 2023-03-24 22:21 | ED.GENADULT ---
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) Mode of arrival: EMS Limitations: altered mental status History of Present Illness HPI narrative: Patient history of severe dementia was seen here yesterday for questionable abdominal pain without vomiting or diarrhea had full workup done including CT scan labs and urine were normal comes back as complaining of pain again not sure where the pain is not in any distress with stable vital when examined patient denied any pain Related Data Home Medications Medication Instructions Recorded Confirmed amlodipine 10 mg tablet 10 mg PO DAILY 03/23/23 03/23/23 atorvastatin 20 mg tablet 20 mg PO DAILY 03/23/23 03/23/23 cholecalciferol (vitamin D3) 25 25 mcg PO DAILY 03/23/23 03/23/23 mcg (1,000 unit) tablet cyanocobalamin (vitamin B-12) 2,500 mcg PO DAILY 03/23/23 03/23/23 2,500 mcg tablet duloxetine 60 mg capsule,delayed 60 mg PO DAILY 03/23/23 03/23/23 release mirabegron 50 mg tablet,extended 50 mg PO DAILY 03/23/23 03/23/23 release 24 hr (Myrbetriq) risperidone 0.5 mg tablet 0.5 mg PO BID 03/23/23 03/23/23 vitamin A-vitamin C-vit E-min 1 tab PO DAILY 03/23/23 03/23/23 tablet Previous Rx's Medication Instructions Recorded acetaminophen 325 mg tablet 650 mg PO Q6H PRN pain #60 tabs 03/25/23 (Tylenol) Allergies Allergy/AdvReac Type Severity Reaction Status Date / Time morphine Allergy Unknown Verified 07/21/16 00:00 Sulfa (Sulfonamide Allergy Unknown rash/swelli Verified 07/21/16 00:00 Antibiotics) ng morphine Allergy Unknown rash Uncoded 04/20/17 00:00 sulfa drugs Allergy Unknown redness in Uncoded 04/20/17 00:00 face Review of Systems Review of Systems: Yes all other systems are reviewed and are negative [facility] Social History Social History Alcohol intake: never Advance Directives: No Advance Directives Information Provided: No Physical Exam ED Vital Signs: Vital Signs - 24 hr 03/24/23 19:25 03/24/23 23:19 Temperature 98.9 F 98.8 F Pulse Rate 81 90 Respiratory Rate 17 18 Blood Pressure 141/76 H 155/78 H Pulse Oximetry 94 93 Oxygen Delivery Method Room Air Room Air BMI result Body Mass Index 26.7 Appearance: Alert. Oriented X1. No acute distress. Eyes: PERRLA, No Nystagmus ENT: Pharynx normal. Oral Mucosa moist Neck: Normal inspection. Neck supple. CVS: Normal heart rate and rhythm. Pulses normal. Respiratory: No respiratory distress. Equal air entry bilateral, no wheezing/rales/rhonchi Abdomen: Soft and nontender. Bowel sounds are present, no mass palpable, no CVA tenderness Skin: Skin warm and dry. Normal skin color. Normal skin turgor. Extremities: No lower extremity edema. No calf tenderness Neuro: Oriented X 1- moving all 4 extremities Medical Decision Making Medical Decision Making MDM Narrative: Patient with stable vitals with recent dental workup negative no focal findings noticed during this visit will discharge patient back to skilled nursing advised to give Tylenol for pain Discharge Plan Discharge Clinical Impression: Dementia Patient Disposition: Home, Self-Care Instructions: Dementia (ED) Additional Instructions: Cause of nonspecific pain is not clear Previous workup was normal May use Tylenol 650 mg every 6 hours as needed for pain Prescriptions: New acetaminophen [Tylenol] 325 mg tablet 650 mg PO Q6H PRN (Reason: pain) Qty: 60 0RF No Action atorvastatin 20 mg tablet 20 mg PO DAILY amlodipine 10 mg tablet 10 mg PO DAILY risperidone 0.5 mg tablet 0.5 mg PO BID Ocuvite Tablet 1 tab PO DAILY duloxetine 60 mg capsule,delayed release(DR/EC) 60 mg PO DAILY cholecalciferol (vitamin D3) 25 mcg (1,000 unit) Tablet 25 mcg PO DAILY Myrbetriq 50 mg tablet extended release 24 hr 50 mg PO DAILY cyanocobalamin (vitamin B-12) 2,500 mcg Tablet 2,500 mcg PO DAILY Interventions: ED Discharge Assessment Last Done: 03/25/23 00:30 Discharge Date/Time: 03/25/23 00:31
[2023-03-24 23:19] VITALS: BP 155/78; PULSE 90; RESP 18; TEMP 37.1; O2SAT 93
--- NOTE | 2023-03-25 00:03 | MHC.EDTECH ---
Call out to [facility] to book BLS transport back to [facility]. ETA of 25 minutes was given by dispatch
== END 2023-03-25 00:31 | disposition home or self-care (01) ==
PROVIDERS: Emergency Provider Internal Medicine
DX: F03.90 Unspecified dementia, unspecified severity, without behavioral disturbance, psychotic disturbance, mood disturbance, and anxiety (principal); M79.605 Pain in left leg; I10 Essential (primary) hypertension; Z79.899 Other long term (current) drug therapy
CPT/HCPCS: 99283

== ENCOUNTER 2023-04-04 08:21 | Emergency (ER) | payer MEDICARE, SELFPAY ==
--- NOTE | ~2023-04-04 | CT_ITS ---
EXAMINATION: CT HEAD WITHOUT CONTRAST CLINICAL INFORMATION: History dementia fall unknown loss of consciousness COMPARISON: CT head from 01/24/2023 TECHNIQUE: Contiguous axial imaging was performed from the skull base to vertex without intravenous administration of contrast. This CT examination was performed using dose optimization techniques as appropriate, variously including the following: *Automated exposure control *Adjustment of mA and/or kV according to patient size (this includes techniques or standardized protocols for targeted exams where dose is matched to indication/reason for exam; i.e. extremities or head) *Use of iterative reconstruction technique DLP: 901 mGy-cm FINDINGS: There is no evidence of acute intracranial hemorrhage or territorial infarction. Chronic white matter small vessel ischemic changes. No abnormal mass effect or midline shift is seen. Cantu to white matter differentiation is well preserved. No extra-axial fluid collections are identified. The ventricles are normal in size. There is no abnormal attenuation within the brain parenchyma. The osseous structures and soft tissues are normal. The mastoid air cells and visualized portions of the paranasal sinuses are well aerated. Vertebrobasilar atherosclerotic calcifications. CT/CT cervical spine wo IV con IMPRESSION: 1. No acute intracranial pathology. 2. Chronic white matter small vessel ischemic changes. EXAMINATION: Noncontrast CT scan of the cervical spine. INDICATION: Status post fall COMPARISON: None. TECHNIQUE: Helical, multidetector axial images were obtained from the occiput to the upper thorax. Coronal and sagittal reformats of the cervical spine were provided for interpretation. DLP: 901 mGy-cm FINDINGS: No acute fractures or dislocations of the cervical spine are seen. Reversal of the normal cervical curvature centered at C4-C5. Grade 1 anterolisthesis of C4 on C5. Very slight grade 1 retrolisthesis of C5 on C6. Moderate multilevel degenerative changes greatest at C5-C6. Anatomic alignment and positioning of the vertebral bodies and posterior elements is noted. The atlantoaxial joint and craniovertebral articulations are normal without evidence of subluxation. There is no prevertebral soft tissue swelling. The thyroid gland and visualized portions of the lung apices and mediastinum are unremarkable. IMPRESSION: 1. No acute visible fracture or dislocation. 2. Reversal of the normal cervical curvature centered at C4-C5. 3. Grade 1 anterolisthesis of C4 on C5. 4. Very slight grade 1 retrolisthesis of C5 on C6. 5. Moderate multilevel degenerative changes greatest at C5-C6.
--- NOTE | ~2023-04-04 | XR_ITS ---
EXAMINATION: XR CHEST CLINICAL INFORMATION: Fall COMPARISON: Previous chest x-ray December 2022 TECHNIQUE: Frontal view of the chest was obtained. FINDINGS: The cardiac and mediastinal contours are stable. The lungs are clear. No pleural effusion or pneumothorax. Degenerative changes of the spine and shoulders. No fracture appreciated. XR/XR chest 1V IMPRESSION: No evidence for acute disease in the chest.
--- NOTE | 2023-04-04 08:30 | ECG_ITS ---
Test Reason : weakness Blood Pressure : / mmHG Vent. Rate : 082 BPM Atrial Rate : 082 BPM P-R Int : 134 ms QRS Dur : 116 ms QT Int : 390 ms P-R-T Axes : 052 -44 075 degrees QTc Int : 455 ms Sinus rhythm with occasional Premature ventricular complexes Left axis deviation Left ventricular hypertrophy with QRS widening ( R in aVL , René product ) Nonspecific T wave abnormality Abnormal ECG When compared with ECG of 24-JAN-2023 19:37, Premature ventricular complexes are now Present Nonspecific T wave abnormality no longer evident in Inferior leads Referred By: Beatrice Thompson Electronically Signed By:SOPHIA CARMEN
--- NOTE | 2023-04-04 08:31 | ED.FALL ---
HPI - Fall General Chief Complaint: Fall Stated Complaint: UNWITT FALL, -THINNERS, +COLLAR Time Seen by Provider: 04/04/23 08:22 Source: patient and EMS Mode of arrival: EMS Limitations: altered mental status History of Present Illness HPI Narrative: 77 yo female with history of dementia, HTN, HLD not on AC therapy here after being found down on the ground. Patient unable to provide HPI. Fall was unwitnessed. Unknown downtime. Coming from the [facility] memory care unit Per nursing patient has had 3 falls in the last few weeks Related Data Home Medications Medication Instructions Recorded Confirmed amlodipine 10 mg tablet 10 mg PO DAILY 03/23/23 03/23/23 atorvastatin 20 mg tablet 20 mg PO DAILY 03/23/23 03/23/23 cholecalciferol (vitamin D3) 25 25 mcg PO DAILY 03/23/23 03/23/23 mcg (1,000 unit) tablet cyanocobalamin (vitamin B-12) 2,500 mcg PO DAILY 03/23/23 03/23/23 2,500 mcg tablet duloxetine 60 mg capsule,delayed 60 mg PO DAILY 03/23/23 03/23/23 release mirabegron 50 mg tablet,extended 50 mg PO DAILY 03/23/23 03/23/23 release 24 hr (Myrbetriq) risperidone 0.5 mg tablet 0.5 mg PO BID 03/23/23 03/23/23 vitamin A-vitamin C-vit E-min 1 tab PO DAILY 03/23/23 03/23/23 tablet Previous Rx's Medication Instructions Recorded acetaminophen 325 mg tablet 650 mg PO Q6H PRN pain #60 tabs 03/25/23 (Tylenol) Allergies Allergy/AdvReac Type Severity Reaction Status Date / Time morphine Allergy Unknown Unknown Verified 04/04/23 08:36 Sulfa (Sulfonamide Allergy Unknown rash/swelli Verified 04/04/23 08:36 Antibiotics) ng morphine Allergy Unknown rash Uncoded 04/04/23 08:36 sulfa drugs Allergy Unknown redness in Uncoded 04/04/23 08:36 face Review of Systems Review of Systems: Yes Unobtainable due to mental status Neurologic: Reports confusion Psychiatric: Psychiatric: Reports confusion PMFSH Past Medical History Attestation statement: The following information was validated with the patient. Source: old records reviewed and nursing notes reviewed Social History Social History Alcohol intake: never Advance Directives: Yes Advance Directives on File: Yes Advance Directives Date on File: 01/26/23 Physical Exam Vital Signs: Vital Signs: Last Vital Signs Temp 97.4 F 04/04/23 08:36 Pulse 78 04/04/23 10:38 Resp 16 04/04/23 08:36 BP 153/76 H 04/04/23 10:38 Pulse Ox 92 04/04/23 08:36 O2 Del Method Room Air 04/04/23 08:36 BMI result Body Mass Index 30.7 Const: General: alert and confusion Orientation/consciousness: confusion Limitations: altered mental status HEENT: Head: Yes normal to inspection, No contusion and No raccoon eyes Ears: hearing grossly normal bilaterally Eyes: General: appearance normal, both eyes and all related structures Pupils: Equal, round and reactive pupils present Neck: Other: Unable to assess ROM-cervical collar in place Neck: Yes normal visual inspection Chest: Chest palpation & inspection: normal inspection of the chest Resp: Effort & Inspection: normal respiratory effort Auscultation: clear to auscultation bilaterally Cardio: Rate: regular rate Rhythm: regular rhythm Peripheral pulses: Peripheral pulses 2+ throughout GI: Inspection: Yes normal to inspection Palpation (GI): Soft to palpation and nontender Skin: General skin exam: no rashes or lesions noted Neuro: General: moves all extremities, confusion and Unable to assess gait Cranial nerves: Yes Equal, round and reactive pupils present, Yes Normal facial strength present and Yes Midline tongue present Gait exam (Neuro): Unable to assess gait Sensory Exam: Normal double simultaneous stimulation for sensation Extrem: General: Yes normal to inspection, Yes no pedal edema and Yes no calf tenderness Course Course Course Narrative: 1040-Unable to participate in orthostatics Reevaluation(s) Reevaluation #1: 1124-imaging is unremarkable. Labs and urine are unremarkable. EKG shows no ischemic changes. Patient is at her mental status baseline. Plan for discharge back to her Memory Care Unit. Family has been updated. Medical Decision Making Medical Decision Making MDM Narrative: 77 yo female with history of dementia, HTN, HLD not on AC therapy here after being found down on the ground. Patient unable to provide HPI. Fall was unwitnessed. Unknown downtime.? Coming from the [facility] unit? Unable to obtain any HPI, patient unable to provide ROS, PE very limited Alert, confused, no focal neuro findings. Abdomen soft/nontender, no palpable chest tenderness, pelvis stable. Will obtain labs, UA, COVID screen, Ct head/cervical spine, EKG Differential Diagnosis Differential Diagnoses: The differential diagnosis associated with the presentation includes Anemia, electrolyte abnormality, mechanical fall, ACS, ICH/CVA/skull fracture, syncope, orthostatic hypotension, UTI/PNA Low concern for intra-abdominal/thoracic trauma Admission/Observation Consideration of admission/observation: Escalation of care including admission/observation considered Reviewed w/u with POA at the bedside, no medical reason for admission, patient has full services at the [facility] and all are in agreement for transfer back to the [facility] Lab Data MDM Lab Attestation statement: I reviewed the patient's lab results. Mildly elevated cpk, can orally hydrate, otherwise labs unremarkable 04/04/23 08:51 04/04/23 08:51 Labs: Lab Results 04/04/23 04/04/23 04/04/23 Range/Units 08:51 08:51 08:57 WBC 7.6 (4.8-10.8) X10*3/uL RBC 4.32 (4.20-5.50) X10*6/uL Hgb 12.8 (12.0-16.0) g/dl Hct 39.4 (37.0-47.0) % MCV 91.2 (80.0-98.0) fL MCH 29.6 (27.0-33.0) pg MCHC 32.5 (31.0-35.0) g/dl RDW 14.5 (11.0-16.0) % Plt Count 348 D (160-400) X10*3/uL MPV 8.8 L (9.4-12.3) fL Immature Gran % (Auto) 0.7 H (0.0-0.4) % Neut % (Auto) 76.3 H (45-73) % Lymph % (Auto) 14.5 L (20-40) % [place] % (Auto) 6.3 (2-11) % Eos % (Auto) 1.7 (0-4) % Baso % (Auto) 0.5 (0-2) % Lymph # (Auto) 1.1 L (1.2-4.9) X10*3/uL [place] # (Auto) 0.5 (0.1-1.2) X10*3/uL Eos # (Auto) 0.1 (0.0-0.4) X10*3/uL Baso # (Auto) 0.0 (0.0-0.2) X10*3/uL Abs Immat Gran (auto) 0.05 H (0.00-0.03) X10*3/uL Absolute Neuts (auto) 5.8 (2.0-8.3) x10*3/uL Absolute Nucleated RBC 0.000 (0.0-0.012) X10*3/uL Nucleated RBC % (auto) 0.0 (0.0-0.2) /100WBC Sodium (135-145) mmol/L Potassium (3.3-5.1) mmol/L Chloride (96-108) mmol/L Carbon Dioxide (22-29) mmol/L Anion Gap (12-20) BUN (9-16) mg/dL Creatinine (0.5-1.4) mg/dL Estim Creat Clear Calc Estimated GFR Random Glucose (60-115) mg/dL Calcium (8.4-10.2) mg/dL Magnesium (1.6-2.6) mg/dL Total Bilirubin (0.0-1.0) mg/dL Direct Bilirubin (0.0-0.5) mg/dL AST (5-31) U/L ALT (0-31) U/L Alkaline Phosphatase (39-117) U/L Total Creatine Kinase (26-140) U/L Troponin I High Sens (<3.5-17.0) ng/L Total Protein (6.5-8.0) g/dL Albumin (3.5-5.0) g/dL Urine Color Yellow Urine Appearance Cloudy Urine pH 7.0 (5.0-9.0) Ur Specific [place] 1.015 (1.005-1.025) Urine Protein Trace (Neg-Trace) mg/dL Urine Glucose (UA) Negative (Negative) mg/dL Urine Ketones Trace (Negative) mg/dL Urine Blood Negative (Negative) Urine Nitrite Negative (Negative) Ur Leukocyte Esterase Trace H (Negative) Urine RBC 0-2 (0-2) /HPF Urine WBC 6-10 H (0-5) /HPF Ur Squamous Epith Cells 0-2 (0-2) /HPF Urine Bacteria 4+ (None Seen) Hyaline Casts 0-2 (0-2) /LPF COVID-19 (NELI) Negative (Negative) COVID-19 Clin Com See Note 04/04/23 04/04/23 Range/Units 10:47 10:47 WBC (4.8-10.8) X10*3/uL RBC (4.20-5.50) X10*6/uL Hgb (12.0-16.0) g/dl Hct (37.0-47.0) % MCV (80.0-98.0) fL MCH (27.0-33.0) pg MCHC (31.0-35.0) g/dl RDW (11.0-16.0) % Plt Count (160-400) X10*3/uL MPV (9.4-12.3) fL Immature Gran % (Auto) (0.0-0.4) % Neut % (Auto) (45-73) % Lymph % (Auto) (20-40) % [place] % (Auto) (2-11) % Eos % (Auto) (0-4) % Baso % (Auto) (0-2) % Lymph # (Auto) (1.2-4.9) X10*3/uL [place] # (Auto) (0.1-1.2) X10*3/uL Eos # (Auto) (0.0-0.4) X10*3/uL Baso # (Auto) (0.0-0.2) X10*3/uL Abs Immat Gran (auto) (0.00-0.03) X10*3/uL Absolute Neuts (auto) (2.0-8.3) x10*3/uL Absolute Nucleated RBC (0.0-0.012) X10*3/uL Nucleated RBC % (auto) (0.0-0.2) /100WBC Sodium 143 (135-145) mmol/L Potassium 4.0 (3.3-5.1) mmol/L Chloride 108 (96-108) mmol/L Carbon Dioxide 23 (22-29) mmol/L Anion Gap 16 (12-20) BUN 15 (9-16) mg/dL Creatinine 0.67 (0.5-1.4) mg/dL Estim Creat Clear Calc 79.0 Estimated GFR > 60 Random Glucose 103 (60-115) mg/dL Calcium 10.3 H D (8.4-10.2) mg/dL Magnesium 2.1 (1.6-2.6) mg/dL Total Bilirubin 0.5 (0.0-1.0) mg/dL Direct Bilirubin 0.1 (0.0-0.5) mg/dL AST 31 (5-31) U/L ALT 31 (0-31) U/L Alkaline Phosphatase 173 H (39-117) U/L Total Creatine Kinase 229 H (26-140) U/L Troponin I High Sens 7.9 D (<3.5-17.0) ng/L Total Protein 7.4 (6.5-8.0) g/dL Albumin 3.7 (3.5-5.0) g/dL Urine Color Urine Appearance Urine pH (5.0-9.0) Ur Specific [place] (1.005-1.025) Urine Protein (Neg-Trace) mg/dL Urine Glucose (UA) (Negative) mg/dL Urine Ketones (Negative) mg/dL Urine Blood (Negative) Urine Nitrite (Negative) Ur Leukocyte Esterase (Negative) Urine RBC (0-2) /HPF Urine WBC (0-5) /HPF Ur Squamous Epith Cells (0-2) /HPF Urine Bacteria (None Seen) Hyaline Casts (0-2) /LPF COVID-19 (NELI) (Negative) COVID-19 Clin Com Independent Interpretation I performed an independent interpretation of an: EKG, Plain X-Ray and CT Scan Interpretation: I independently reviewed the EKG which shows NSR with occasional PVCs LVH Nonspecific ST changes-same as EKG 01/24/[address], Normal QRS, Normal QT I independently reviewed the CT head/Ct cervical spine, CXR and agree with rad report Radiology Impression Discussion of test interpretation with radiology: I have reviewed the radiologist's reading. Radiologist Impression: FINDINGS: There is no evidence of acute intracranial hemorrhage or territorial infarction. Chronic white matter small vessel ischemic changes. No abnormal mass effect or midline shift is seen. Cantu to white matter differentiation is well preserved. No extra-axial fluid collections are identified. The ventricles are normal in size. There is no abnormal attenuation within the brain parenchyma. The osseous structures and soft tissues are normal. The mastoid air cells and visualized portions of the paranasal sinuses are well aerated. Vertebrobasilar atherosclerotic calcifications. ? CT/CT cervical spine wo IV con IMPRESSION: 1.? No acute intracranial pathology. 2.? Chronic white matter small vessel ischemic changes. ? EXAMINATION: Noncontrast CT scan of the cervical spine. ? INDICATION: Status post fall ? COMPARISON: None. ? TECHNIQUE:? Helical, multidetector axial images were obtained from the occiput to the upper thorax. Coronal and sagittal reformats of the cervical spine were provided for interpretation. ? DLP: 901 mGy-cm ? FINDINGS: No acute fractures or dislocations of the cervical spine are seen. Reversal of the normal cervical curvature centered at C4-C5. Grade 1 anterolisthesis of C4 on C5. Very slight grade 1 retrolisthesis of C5 on C6. Moderate multilevel degenerative changes greatest at C5-C6. Anatomic alignment and positioning of the vertebral bodies and posterior elements is noted. The atlantoaxial joint and craniovertebral articulations are normal without evidence of subluxation. There is no prevertebral soft tissue swelling. ? The thyroid gland and visualized portions of the lung apices and mediastinum are unremarkable. ? IMPRESSION: 1.? No acute visible fracture or dislocation. 2.? Reversal of the normal cervical curvature centered at C4-C5. 3.? Grade 1 anterolisthesis of C4 on C5. 4.? Very slight grade 1 retrolisthesis of C5 on C6. 5.? Moderate multilevel degenerative changes greatest at C5-C6. ? [address] [address] XRay Report Signed Patient: Nazia Downs MR#: [id number] : 1945 Acct:[id number] Age/Sex: 77 / F ADM Date: 04/04/23 Loc: HO.ED Attending Dr: Ordering Physician: Beatrice Jade NP Date of Service: 09/02/23 Procedure(s): XR chest 1V Accession Number(s): [id number] cc: Physician,Unknown ; Beatrice Jade NP~ EXAMINATION: XR CHEST CLINICAL INFORMATION: Fall COMPARISON: Previous chest x-ray December 2022 TECHNIQUE: Frontal view of the chest was obtained. FINDINGS: The cardiac and mediastinal contours are stable. The lungs are clear. No pleural effusion or pneumothorax. Degenerative changes of the spine and shoulders. No fracture appreciated. XR/XR chest 1V IMPRESSION: No evidence for acute disease in the chest. Independent Historian Clinical information obtained from an independent historian. History obtained from or confirmed by: EMS Discharge Plan Discharge Clinical Impression: Fall Patient Disposition: Xfer SNF Transfer Details: [facility] Instructions: Fall Prevention for Older Adults (ED) Prescriptions: No Action atorvastatin 20 mg tablet 20 mg PO DAILY amlodipine 10 mg tablet 10 mg PO DAILY risperidone 0.5 mg tablet 0.5 mg PO BID Ocuvite Tablet 1 tab PO DAILY duloxetine 60 mg capsule,delayed release(DR/EC) 60 mg PO DAILY cholecalciferol (vitamin D3) 25 mcg (1,000 unit) Tablet 25 mcg PO DAILY Myrbetriq 50 mg tablet extended release 24 hr 50 mg PO DAILY cyanocobalamin (vitamin B-12) 2,500 mcg Tablet 2,500 mcg PO DAILY acetaminophen [Tylenol] 325 mg tablet 650 mg PO Q6H PRN (Reason: pain) Qty: 60 0RF
[2023-04-04 08:36] VITALS: BP 179/97; BP 200/120; PULSE 76; PULSE 81; RESP 16; TEMP 36.3; O2SAT 92; O2SAT 95; BMI 30.7
[2023-04-04 08:58] LABS: MANUAL DIFF FLAG NO
[2023-04-04 09:02] LABS: Basophils Percent Auto 0.5 % (0-2); Eosinophils Absolute Auto 0.1 X10*3/uL (0.0-0.4); Eosinophils Percent Auto 1.7 % (0-4); Hematocrit 39.4 % (37.0-47.0); Hemoglobin 12.8 g/dl (12.0-16.0); Imm Gran Abs Auto 0.05 X10*3/uL (0.00-0.03); Imm Gran Pct Auto 0.7 % (0.0-0.4); Lymphocytes Absolute Auto 1.1 X10*3/uL (1.2-4.9); Lymphocytes Percent Auto 14.5 % (20-40); Mean Corpuscular HGB Conc 32.5 g/dl (31.0-35.0); Mean Corpuscular Hemoglobin 29.6 pg (27.0-33.0); Mean Corpuscular Volume 91.2 fL (80.0-98.0); Mean Platelet Volume 8.8 fL (9.4-12.3); Monocytes Absolute Auto 0.5 X10*3/uL (0.1-1.2); Monocytes Percent Auto 6.3 % (2-11); Neutrophils Absolute Auto 5.8 x10*3/uL (2.0-8.3); Neutrophils Percent Auto 76.3 % (45-73); Platelet Count 348 X10*3/uL (160-400); Red Blood Count 4.32 X10*6/uL (4.20-5.50); Red Cell Distribution Width 14.5 % (11.0-16.0); White Blood Count 7.6 X10*3/uL (4.8-10.8)
[2023-04-04 09:18] LABS: Appearance Urine Cloudy; Color Urine Yellow; Glucose Urine UA Negative (Negative); Leukocyte Esterase Urine Trace (Negative); Nitrite Urine Negative (Negative); Specific Gravity - Urine 1.015 (1.005-1.025); UMIC TRIGGER UACC YES; Urine Blood Negative (Negative); Urine Ketones Trace mg/dL (Negative); Urine Protein Trace mg/dL (Neg-Trace)
[2023-04-04 09:20] LABS: Bacteria Urine 4+ (None Seen); Hyaline Casts Urine 0-2 /LPF (0-2); RBC Urine 0-2 /HPF (0-2); Squamous Epithelial Cell Urine 0-2 /HPF (0-2); UACC Culture Trigger YES
[2023-04-04 09:21] LABS: COVID-19 Test Negative (Negative); IDNOW Serial# BCCEAD1C
[2023-04-04 10:38] VITALS: BP 153/76; PULSE 78
[2023-04-04 11:17] LABS: Troponin-I High Sensitivity 7.9 ng/L (<3.5-17.0)
[2023-04-04 11:22] LABS: Alanine Aminotransferase 31 U/L (0-31); Albumin Level 3.7 g/dL (3.5-5.0); Alkaline Phosphatase 173 U/L (39-117); Anion Gap 16 (12-20); Aspartate Amino Transferase 31 U/L (5-31); Bilirubin Direct 0.1 mg/dL (0.0-0.5); Bilirubin Total 0.5 mg/dL (0.0-1.0); Blood Urea Nitrogen 15 mg/dL (9-16); Calcium 10.3 mg/dL (8.4-10.2); Carbon Dioxide 23 mmol/L (22-29); Chloride 108 mmol/L (96-108); Estimated Glomerular Filt Rate > 60; Glucose Random 103 mg/dL (60-115); Magnesium 2.1 mg/dL (1.6-2.6); Sodium 143 mmol/L (135-145); Total Protein 7.4 g/dL (6.5-8.0)
== END 2023-04-04 15:30 | disposition skilled nursing facility (03) ==
PROVIDERS: Nurse Practitioner Family; Emergency Provider Emergency Medicine
DX: R29.6 Repeated falls (principal); Z91.81 History of falling; I10 Essential (primary) hypertension; E78.5 Hyperlipidemia, unspecified; F03.90 Unspecified dementia, unspecified severity, without behavioral disturbance, psychotic disturbance, mood disturbance, and anxiety; Z20.822 Contact with and (suspected) exposure to COVID-19; Z79.899 Other long term (current) drug therapy
CPT/HCPCS: 36415; 51701; 70450; 71045; 72125; 80048; 80076; 81001; 81003; 82550; 83735; 84484; 85025; 87086; 87088; 87635; 93005; 99284

== ENCOUNTER 2023-04-06 12:23 | Emergency (ER) | payer MEDICARE, SELFPAY ==
--- NOTE | ~2023-04-06 | XR_ITS ---
EXAMINATION: XR THORACIC SPINE XR LUMBAR SPINE CLINICAL INDICATION: Fall, pain COMPARISON: CT abdomen/pelvis 03/23/2023 TECHNIQUE: 3 views of the thoracic spine. 3 views of the lumbar spine. FINDINGS: Thoracic spine: Thoracic spinal alignment appears anatomic. Vertebral body heights appear maintained, with no acute fracture seen. Degenerative changes are noted in the cervical spine, better assessed on accompanying cervical spine CT. Lumbar spine: There is a dextroscoliosis of the lumbar spine. There is grade 1 retrolisthesis of L2 on L3. There is moderate compression deformity of L2, worsened from 03/23/2023. Remaining lumbar vertebral body heights are maintained. There is facet arthropathy of the lower lumbar spine. There is disc space narrowing at L1-L2. Sacroiliac joints appear intact with degenerative change. There is atherosclerotic calcification along the aorta. XR/XR lumbar spine 2-3V IMPRESSION: 1. Moderate compression deformity of L2, worsened from 03/23/2023 and which may be acute or subacute in nature. 2. No acute findings identified in the thoracic spine. 3. Degenerative changes of the lumbar spine as described above.
--- NOTE | ~2023-04-06 | XR_ITS ---
EXAMINATION: XR THORACIC SPINE XR LUMBAR SPINE CLINICAL INDICATION: Fall, pain COMPARISON: CT abdomen/pelvis 03/23/2023 TECHNIQUE: 3 views of the thoracic spine. 3 views of the lumbar spine. FINDINGS: Thoracic spine: Thoracic spinal alignment appears anatomic. Vertebral body heights appear maintained, with no acute fracture seen. Degenerative changes are noted in the cervical spine, better assessed on accompanying cervical spine CT. Lumbar spine: There is a dextroscoliosis of the lumbar spine. There is grade 1 retrolisthesis of L2 on L3. There is moderate compression deformity of L2, worsened from 03/23/2023. Remaining lumbar vertebral body heights are maintained. There is facet arthropathy of the lower lumbar spine. There is disc space narrowing at L1-L2. Sacroiliac joints appear intact with degenerative change. There is atherosclerotic calcification along the aorta. XR/XR thoracic spine 2V IMPRESSION: 1. Moderate compression deformity of L2, worsened from 03/23/2023 and which may be acute or subacute in nature. 2. No acute findings identified in the thoracic spine. 3. Degenerative changes of the lumbar spine as described above.
--- NOTE | ~2023-04-06 | CT_ITS ---
EXAMINATION: CT HEAD WITHOUT CONTRAST CLINICAL INFORMATION: Dementia unwitnessed fall COMPARISON: CT head from 04/04/2023 TECHNIQUE: Contiguous axial imaging was performed from the skull base to vertex without intravenous administration of contrast. This CT examination was performed using dose optimization techniques as appropriate, variously including the following: *Automated exposure control *Adjustment of mA and/or kV according to patient size (this includes techniques or standardized protocols for targeted exams where dose is matched to indication/reason for exam; i.e. extremities or head) *Use of iterative reconstruction technique DLP: 826 mGy-cm FINDINGS: There is no evidence of acute intracranial hemorrhage or territorial infarction. Chronic white matter small vessel ischemic changes. Cerebral atrophy with commensurate ventricular changes. No abnormal mass effect or midline shift is seen. Cantu to white matter differentiation is well preserved. No extra-axial fluid collections are identified. There is no abnormal attenuation within the brain parenchyma. The osseous structures and soft tissues are normal. The mastoid air cells and visualized portions of the paranasal sinuses are well aerated. Vertebrobasilar atherosclerotic calcifications. CT/CT cervical spine wo IV con 1. IMPRESSION: 2. No acute intracranial pathology. 3. Chronic white matter small vessel ischemic changes. EXAMINATION: Noncontrast CT scan of the cervical spine. INDICATION: Dementia unwitnessed fall COMPARISON: CT cervical spine from 04/04/2023 TECHNIQUE: Helical, multidetector axial images were obtained from the occiput to the upper thorax. Coronal and sagittal reformats of the cervical spine were provided for interpretation. DLP: 826 mGy-cm FINDINGS: No acute fractures or dislocations of the cervical spine are seen. Grade 1 anterolisthesis of C4 on C5. Grade 1 retrolisthesis of C5 on C6. Resultant reversal of normal cervical curvature centered at C5. Multilevel degenerative changes. Anatomic alignment and positioning of the vertebral bodies and posterior elements is noted. The atlantoaxial joint and craniovertebral articulations are normal without evidence of subluxation. There is no prevertebral soft tissue swelling. The thyroid gland and visualized portions of the lung apices and mediastinum are unremarkable. IMPRESSION: 1. No acute visible fracture or dislocation. 2. Grade 1 anterolisthesis of C4 on C5. Grade 1 retrolisthesis of C5 on C6. Resultant reversal of normal cervical curvature centered at C5. 3. Multilevel degenerative changes.
[2023-04-06 12:34] VITALS: BP 132/90; PULSE 88; O2SAT 95
[2023-04-06 12:37] VITALS: BP 125/74; PULSE 78; RESP 22; TEMP 36.7; O2SAT 97; BMI 25.9
--- NOTE | 2023-04-06 12:46 | PC.NURSE ---
from [facility], found sitting on floor, multiple episode of falls recently. hx of dementia. no apparent injuries.
--- NOTE | 2023-04-06 13:38 | ECG_ITS ---
Test Reason : FALLS Blood Pressure : / mmHG Vent. Rate : 080 BPM Atrial Rate : 080 BPM P-R Int : 128 ms QRS Dur : 116 ms QT Int : 342 ms P-R-T Axes : 069 -52 098 degrees QTc Int : 394 ms Sinus rhythm with occasional Premature ventricular complexes Left axis deviation Left ventricular hypertrophy with QRS widening and repolarization abnormality ( R in aVL , [place] product ) Abnormal ECG When compared with ECG of 04-APR-2023 09:54, QT has shortened Referred By: Priya Garnica Electronically Signed By:SOPHIA CARMEN
--- NOTE | 2023-04-06 13:40 | ED_ITS ---
HPI - Fall General Chief Complaint: Fall Stated Complaint: UNWITNESSED FALL Time Seen by Provider: 04/06/23 13:03 Source: other Mode of arrival: EMS Limitations: other (Dementia) History of Present Illness HPI Narrative: Patient comes to emergency room via ambulance from assisted living. Patient has significant history of dementia and is unable to give history. Patient states that she feels well and denies falling. However, patient's best friend who is her healthcare proxy, states that the facility called her because the patient fell today. Patient's healthcare proxy states that in the last 2 weeks, she has fallen at least 5 times. Patient is noted to have an L4 fracture from previous falls. Patient is unable to take care of herself, patient will need higher level of care. Related Data Home Medications Medication Instructions Recorded Confirmed amlodipine 10 mg tablet 10 mg PO DAILY 03/23/23 03/23/23 atorvastatin 20 mg tablet 20 mg PO DAILY 03/23/23 03/23/23 cholecalciferol (vitamin D3) 25 25 mcg PO DAILY 03/23/23 03/23/23 mcg (1,000 unit) tablet cyanocobalamin (vitamin B-12) 2,500 mcg PO DAILY 03/23/23 03/23/23 2,500 mcg tablet duloxetine 60 mg capsule,delayed 60 mg PO DAILY 03/23/23 03/23/23 release mirabegron 50 mg tablet,extended 50 mg PO DAILY 03/23/23 03/23/23 release 24 hr (Myrbetriq) risperidone 0.5 mg tablet 0.5 mg PO BID 03/23/23 03/23/23 vitamin A-vitamin C-vit E-min 1 tab PO DAILY 03/23/23 03/23/23 tablet Previous Rx's Medication Instructions Recorded acetaminophen 325 mg tablet 650 mg PO Q6H PRN pain #60 tabs 03/25/23 (Tylenol) Allergies Allergy/AdvReac Type Severity Reaction Status Date / Time morphine Allergy Unknown Unknown Verified 04/04/23 08:36 Sulfa (Sulfonamide Allergy Unknown rash/swelli Verified 04/04/23 08:36 Antibiotics) ng morphine Allergy Unknown rash Uncoded 04/04/23 08:36 sulfa drugs Allergy Unknown redness in Uncoded 04/04/23 08:36 face Review of Systems Review of Systems: Yes Unobtainable due to mental condition (Advanced dementia) PMFSH Past Medical History Medical History (Updated 04/06/23 @ 16:47 by Priya Garnica MD) Dementia Hypertension Social History Social History Alcohol intake: never Advance Directives: Yes Advance Directives on File: Yes Advance Directives Date on File: 01/26/23 Physical Exam Vital Signs: Vital Signs: Last Vital Signs Temp 97.8 F 04/06/23 14:19 Pulse 77 04/06/23 14:19 Resp 16 04/06/23 14:19 BP 156/80 H 04/06/23 14:19 Pulse Ox 92 04/06/23 14:19 O2 Del Method Room Air 04/06/23 14:19 BMI result Body Mass Index 25.9 Const: Other: Appearance: Alert. Oriented X1. No acute distress. Eyes: Pupils equal, round and reactive to light. ENT: Pharynx normal. Neck: Normal inspection. Neck supple. No lymph nodes noted. No crepitus CVS: Normal heart rate and rhythm. Pulses normal. Normal S1 and S2 Respiratory: No respiratory distress. Breath sounds normal. No Wheezing. No rales Abdomen: Soft and nontender. No rigidity. No distention. Back: Pain/discomfort over the lumbar area Skin: Skin warm and dry. Normal skin color. Normal skin turgor. Extremities: No lower extremity edema. No Lacerations. No Rash Neuro: Oriented X 1. No motor deficit. No sensory deficit. Moving all extremities. No slurred speech. CN 2 through 12 grossly intact Psych: calm, cooperative, normal affect Course Course Course Narrative: -all of patient's labs are pending -patient will need higher level of care, once medically cleared, patient will need a physical therapy and Case Management consult Medical Decision Making Medical Decision Making MDM Narrative: -my interpretation of labs: Normal white blood cell count, normal chemistry, urinalysis pending -my interpretation of head CT: No intracranial bleed -PT and Case Management consults pending -she will be staying overnight in the emergency room, patient will need higher level of care. Patient does not seem to understand the plan, but her healthcare proxy who is at bedside is aware and agrees with the plan. Differential Diagnosis Differential Diagnoses: The differential diagnosis associated with the presentation includes (Dementia, deconditioning, UTI, intracranial bleed) Admission/Observation Consideration of admission/observation: Escalation of care including admis alexis/observation considered (Patient has fallen 5 times within couple of weeks, admission considered) Lab Data MDM Lab Attestation statement: I reviewed the patient's lab results. 04/06/23 14:14 04/06/23 14:14 Labs: Lab Results 04/06/23 04/06/23 04/06/23 Range/Units 14:14 14:14 14:14 WBC 8.7 (4.8-10.8) X10*3/uL RBC 4.68 (4.20-5.50) X10*6/uL Hgb 13.6 (12.0-16.0) g/dl Hct 42.0 (37.0-47.0) % MCV 89.7 (80.0-98.0) fL MCH 29.1 (27.0-33.0) pg MCHC 32.4 (31.0-35.0) g/dl RDW 14.5 (11.0-16.0) % Plt Count 354 (160-400) X10*3/uL MPV 8.8 L (9.4-12.3) fL Immature Gran % (Auto) 0.3 (0.0-0.4) % Neut % (Auto) 79.4 H (45-73) % Lymph % (Auto) 12.9 L (20-40) % [place] % (Auto) 6.2 (2-11) % Eos % (Auto) 0.9 (0-4) % Baso % (Auto) 0.3 (0-2) % Lymph # (Auto) 1.1 L (1.2-4.9) X10*3/uL [place] # (Auto) 0.5 (0.1-1.2) X10*3/uL Eos # (Auto) 0.1 (0.0-0.4) X10*3/uL Baso # (Auto) 0.0 (0.0-0.2) X10*3/uL Abs Immat Gran (auto) 0.03 (0.00-0.03) X10*3/uL Absolute Neuts (auto) 6.9 (2.0-8.3) x10*3/uL Absolute Nucleated RBC 0.000 (0.0-0.012) X10*3/uL Nucleated RBC % (auto) 0.0 (0.0-0.2) /100WBC PT 12.1 (11.1-13.3) SEC INR 1.0 (0.9-1.1) Sodium 141 (135-145) mmol/L Potassium 3.7 (3.3-5.1) mmol/L Chloride 105 (96-108) mmol/L Carbon Dioxide 23 (22-29) mmol/L Anion Gap 17 (12-20) BUN 17 H (9-16) mg/dL Creatinine 0.83 (0.5-1.4) mg/dL Estim Creat Clear Calc 54.7 Estimated GFR > 60 Random Glucose 106 (60-115) mg/dL Calcium 10.7 H (8.4-10.2) mg/dL Total Bilirubin 0.4 (0.0-1.0) mg/dL Direct Bilirubin 0.2 (0.0-0.5) mg/dL AST 31 (5-31) U/L ALT 45 H (0-31) U/L Alkaline Phosphatase 189 H (39-117) U/L Troponin I High Sens (<3.5-17.0) ng/L Total Protein 7.5 (6.5-8.0) g/dL Albumin 4.0 (3.5-5.0) g/dL COVID-19 (NELI) (Negative) COVID-19 Clin Com 04/06/23 04/06/23 Range/Units 14:14 14:14 WBC (4.8-10.8) X10*3/uL RBC (4.20-5.50) X10*6/uL Hgb (12.0-16.0) g/dl Hct (37.0-47.0) % MCV (80.0-98.0) fL MCH (27.0-33.0) pg MCHC (31.0-35.0) g/dl RDW (11.0-16.0) % Plt Count (160-400) X10*3/uL MPV (9.4-12.3) fL Immature Gran % (Auto) (0.0-0.4) % Neut % (Auto) (45-73) % Lymph % (Auto) (20-40) % [place] % (Auto) (2-11) % Eos % (Auto) (0-4) % Baso % (Auto) (0-2) % Lymph # (Auto) (1.2-4.9) X10*3/uL [place] # (Auto) (0.1-1.2) X10*3/uL Eos # (Auto) (0.0-0.4) X10*3/uL Baso # (Auto) (0.0-0.2) X10*3/uL Abs Immat Gran (auto) (0.00-0.03) X10*3/uL Absolute Neuts (auto) (2.0-8.3) x10*3/uL Absolute Nucleated RBC (0.0-0.012) X10*3/uL Nucleated RBC % (auto) (0.0-0.2) /100WBC PT (11.1-13.3) SEC INR (0.9-1.1) Sodium (135-145) mmol/L Potassium (3.3-5.1) mmol/L Chloride (96-108) mmol/L Carbon Dioxide (22-29) mmol/L Anion Gap (12-20) BUN (9-16) mg/dL Creatinine (0.5-1.4) mg/dL Estim Creat Clear Calc Estimated GFR Random Glucose (60-115) mg/dL Calcium (8.4-10.2) mg/dL Total Bilirubin (0.0-1.0) mg/dL Direct Bilirubin (0.0-0.5) mg/dL AST (5-31) U/L ALT (0-31) U/L Alkaline Phosphatase (39-117) U/L Troponin I High Sens 6.1 (<3.5-17.0) ng/L Total Protein (6.5-8.0) g/dL Albumin (3.5-5.0) g/dL COVID-19 (NELI) Negative (Negative) COVID-19 Clin Com See Note Independent Interpretation I performed an independent interpretation of an: CT Scan Radiology Impression Discussion of test interpretation with radiology: I have reviewed the radiologist's reading. Radiologist Impression: FINDINGS: There is no evidence of acute intracranial hemorrhage or territorial infarction. Chronic white matter small vessel ischemic changes. Cerebral atrophy with commensurate ventricular changes. No abnormal mass effect or midline shift is seen. Cantu to white matter differentiation is well preserved. No extra-axial fluid collections are identified. There is no abnormal attenuation within the brain parenchyma. The osseous structures and soft tissues are normal. The mastoid air cells and visualized portions of the paranasal sinuses are well aerated. Vertebrobasilar atherosclerotic calcifications. ? CT/CT head/brain wo IV con 1.? IMPRESSION: 2.? No acute intracranial pathology. 3.? Chronic white matter small vessel ischemic changes. FINDINGS: Thoracic spine: Thoracic spinal alignment appears anatomic. Vertebral body heights appear maintained, with no acute fracture seen. Degenerative changes are noted in the cervical spine, better assessed on accompanying cervical spine CT. Lumbar spine: There is a dextroscoliosis of the lumbar spine. There is grade 1 retrolisthesis of L2 on L3. There is moderate compression deformity of L2, worsened from 03/23/2023. Remaining lumbar vertebral body heights are maintained. There is facet arthropathy of the lower lumbar spine. There is disc space narrowing at L1-L2. Sacroiliac joints appear intact with degenerative change. There is atherosclerotic calcification along the aorta. XR/XR thoracic spine 2V IMPRESSION: 1.? Moderate compression deformity of L2, worsened from 03/23/2023 and which may be acute or subacute in nature. 2.? No acute findings identified in the thoracic spine. 3.? Degenerative changes of the lumbar spine as described above. Independent Historian Clinical information obtained from an independent historian. History obtained from or confirmed by: Friend Critical Care Time Critical Care Time Critical Care Time: Yes Total Critical Care Time: 60 Attestation: I have personally provided critical care time. Time includes review of lab data, radiology results, discussion with consultants, and monitoring for potential decompensation. Intervention performed as documented. Discharge Plan Discharge Clinical Impression: Dementia, Multiple falls, Lumbar compression fracture Patient Disposition: Still a Patient Prescriptions: No Action atorvastatin 20 mg tablet 20 mg PO DAILY amlodipine 10 mg tablet 10 mg PO DAILY risperidone 0.5 mg tablet 0.5 mg PO BID Ocuvite Tablet 1 tab PO DAILY duloxetine 60 mg capsule,delayed release(DR/EC) 60 mg PO DAILY cholecalciferol (vitamin D3) 25 mcg (1,000 unit) Tablet 25 mcg PO DAILY Myrbetriq 50 mg tablet extended release 24 hr 50 mg PO DAILY cyanocobalamin (vitamin B-12) 2,500 mcg Tablet 2,500 mcg PO DAILY acetaminophen [Tylenol] 325 mg tablet 650 mg PO Q6H PRN (Reason: pain) Qty: 60 0RF
[2023-04-06 14:19] VITALS: BP 156/80; PULSE 77; RESP 16; TEMP 36.6; O2SAT 92
[2023-04-06 14:24] LABS: MANUAL DIFF FLAG NO
[2023-04-06 14:25] LABS: Basophils Percent Auto 0.3 % (0-2); Eosinophils Absolute Auto 0.1 X10*3/uL (0.0-0.4); Eosinophils Percent Auto 0.9 % (0-4); Hemoglobin 13.6 g/dl (12.0-16.0); Imm Gran Abs Auto 0.03 X10*3/uL (0.00-0.03); Imm Gran Pct Auto 0.3 % (0.0-0.4); Lymphocytes Absolute Auto 1.1 X10*3/uL (1.2-4.9); Lymphocytes Percent Auto 12.9 % (20-40); Mean Corpuscular HGB Conc 32.4 g/dl (31.0-35.0); Mean Corpuscular Hemoglobin 29.1 pg (27.0-33.0); Mean Corpuscular Volume 89.7 fL (80.0-98.0); Mean Platelet Volume 8.8 fL (9.4-12.3); Monocytes Absolute Auto 0.5 X10*3/uL (0.1-1.2); Monocytes Percent Auto 6.2 % (2-11); Neutrophils Absolute Auto 6.9 x10*3/uL (2.0-8.3); Neutrophils Percent Auto 79.4 % (45-73); Platelet Count 354 X10*3/uL (160-400); Red Blood Count 4.68 X10*6/uL (4.20-5.50); Red Cell Distribution Width 14.5 % (11.0-16.0); White Blood Count 8.7 X10*3/uL (4.8-10.8)
[2023-04-06 14:33] LABS: Prothrombin Time 12.1 SEC (11.1-13.3)
[2023-04-06 14:41] LABS: Alanine Aminotransferase 45 U/L (0-31); Alkaline Phosphatase 189 U/L (39-117); Anion Gap 17 (12-20); Aspartate Amino Transferase 31 U/L (5-31); Bilirubin Direct 0.2 mg/dL (0.0-0.5); Bilirubin Total 0.4 mg/dL (0.0-1.0); Blood Urea Nitrogen 17 mg/dL (9-16); Calcium 10.7 mg/dL (8.4-10.2); Carbon Dioxide 23 mmol/L (22-29); Chloride 105 mmol/L (96-108); Creatinine Clr Calc Pharmacy 54.7; Estimated Glomerular Filt Rate > 60; Glucose Random 106 mg/dL (60-115); Potassium 3.7 mmol/L (3.3-5.1); Sodium 141 mmol/L (135-145); Total Protein 7.5 g/dL (6.5-8.0)
[2023-04-06 14:43] LABS: COVID-19 Test Negative (Negative); IDNOW Serial# 08D9AD1C
[2023-04-06 14:47] LABS: Troponin-I High Sensitivity 6.1 ng/L (<3.5-17.0)
[2023-04-06] MEDS: traMADoL HCL 50 MG TABLET PO (16:57)
[2023-04-06 17:24] VITALS: BP 155/85; PULSE 81; RESP 14; O2SAT 96
--- NOTE | 2023-04-06 18:42 | PC.NURSE ---
incontinent care and complete bed change done. attempt made to straight cath, small amount of cream colored urine with strong odor. pure wick placed. pt's friend is at her bedside. care handed over to overnight nurse.
--- NOTE | 2023-04-06 18:57 | PHA.MEDREC ---
Pharmacy Consult ? Medication Reconciliation Pharmacy has completed the medication reconciliation. Patient sent in with list [facility]
[2023-04-06 19:24] VITALS: BP 164/95; PULSE 96; RESP 17; O2SAT 93
[2023-04-06] MEDS: risperiDONE 0.5 MG TABLET PO (20:40)
--- NOTE | 2023-04-06 20:47 | MHC.EDTECH ---
Pt is resting in bed Respirations and even and unlabored No distress at this time Plan of care is ongoing
[2023-04-07] MEDS: diphenhydrAMINE HCL 25 MG CAPSULE 50 MG PO (01:25)
[2023-04-07 01:37] LABS: Appearance Urine Cloudy; Color Urine Yellow; Glucose Urine UA Negative (Negative); Leukocyte Esterase Urine Moderate (2+) (Negative); Nitrite Urine Negative (Negative); PH 6.5 (5.0-9.0); Specific Gravity - Urine 1.015 (1.005-1.025); UMIC TRIGGER UACC YES; Urine Blood Negative (Negative); Urine Ketones Trace mg/dL (Negative); Urine Protein Trace mg/dL (Neg-Trace)
[2023-04-07 01:42] LABS: Bacteria Urine 4+ (None Seen); Hyaline Casts Urine 0-2 /LPF (0-2); RBC Urine 0-2 /HPF (0-2); Squamous Epithelial Cell Urine 0-2 /HPF (0-2); UACC Culture Trigger YES
[2023-04-07] MEDS: OLANZapine 5 MG TABLET PO (02:26)
--- NOTE | 2023-04-07 02:48 | PC.NURSE ---
pt moved into hospital bed for comfort and bed exit alarm. Pt has camera in place as well. Pt cleaned and changed, brief placed
--- NOTE | 2023-04-07 03:08 | PC.NURSE ---
Patient is alert to self only, confused per baseline. Patient's friend left home. Patient became agitated, and restless. Patient attempted to climb over the bedside rail. Patient stated Let me go home . Unable to redirect patient. Dr. Barbour made aware of patient's behavior. Patient medicated with Benadryl 50 mg PO with no improvement. Dr. Barbour notified. Patient medicated with Zyprexa 5 mg PO. Patient transferred into hospital bed with exit alarm, camera placed in patient's room to prevent falls. Helen care provided to patient. Patient resting comfortably in bed at present, no further attempts to get out of the bed.
--- NOTE | 2023-04-07 03:32 | PC.NURSE ---
Results of UA revealed urine bacteria 4+ urine WBC 11-20, Leukocyte 2+. Dr. Barbour notified.
[2023-04-07 04:30] VITALS: RESP 16
[2023-04-07 07:19] VITALS: BP 158/86; PULSE 98; RESP 18; TEMP 36.4; O2SAT 93
--- NOTE | 2023-04-07 07:53 | PC.NURSE ---
pt alert to self only. respirations even and unlabored. pt sitting in bed comfortably. pt made attempts to eat small amounts of breakfast. pt confused, sitter at bedside.
[2023-04-07] MEDS: risperiDONE 0.5 MG TABLET PO (08:26)
[2023-04-07] MEDS: amLODIPine Besylate 10 MG TABLET PO (08:29)
[2023-04-07] MEDS: Mirabegron 50 MG TAB.ER.24H PO (08:30)
[2023-04-07] MEDS: Atorvastatin Calcium 20 MG TABLET PO (08:31)
[2023-04-07] MEDS: DULoxetine HCl 60 MG CAPSULE.DR PO (08:32)
--- NOTE | 2023-04-07 08:52 | MHC.EDTECH ---
pt was incontinent of urine, soiled brief was removed, pt was cleaned, hospital pants given, blankets given, pt comfortable with no signs of distress
--- NOTE | 2023-04-07 09:20 | MHC.EDTECH ---
pt was 2-assisted to commode after pt stated she needed to use the bathroom. there was a negative void. fresh linen and warm blankets given. rn aware
--- NOTE | 2023-04-07 09:33 | PC.NURSE ---
pt medicated per mar and takes medications well with applesauce. pt attempted to use commode with 2 assist and pt had difficulty following instruction, unable to keep steady on her feet and confused. linens changed on pt bed and pt was helped back into bed. pt resting calmly.
--- NOTE | 2023-04-07 10:44 | MHC.CM.ED ---
Received case management consult from Dr Garnica. Patient came to the ER due to a fall from [facility]. Patient has a history of L2 fracture. Also found to have an UTI. Physical therapy eval completed. No skill found. T/W spoke with Eric at [facility]. Eric feels patient needs rehab. T/W explained patient does not have a skilled need for rehab. Eric aware patient will return to facility. Spoke with patient's friend/HCP, Josephine via telephone at [phone]. Josephine will be at the ER around 11am. Josephine aware patient does not qualify for rehab and patient will return to [facility]. Additional resources provided to Josephine. Patient will need BLS transport due to advanced dementia. [facility] booked for 1130am. [facility] with chart. Patient, Aspen Butron RN and Jessica SCOTT aware. Continue to monitor for d/c needs.
--- NOTE | 2023-04-07 11:27 | PC.NURSE ---
report given to [facility] nurse.
== END 2023-04-07 13:11 ==
PROVIDERS: Emergency Provider Emergency Medicine; PCP Internal Medicine
DX: S32.029A Unspecified fracture of second lumbar vertebra, initial encounter for closed fracture (principal); F03.90 Unspecified dementia, unspecified severity, without behavioral disturbance, psychotic disturbance, mood disturbance, and anxiety; N39.0 Urinary tract infection, site not specified; M54.6 Pain in thoracic spine; R51.9 Headache, unspecified; M54.2 Cervicalgia; R94.31 Abnormal electrocardiogram [ECG] [EKG]; W01.0XXA Fall on same level from slipping, tripping and stumbling without subsequent striking against object, initial encounter; Y93.9 Activity, unspecified; Y92.9 Unspecified place or not applicable; Y99.9 Unspecified external cause status; Z20.822 Contact with and (suspected) exposure to COVID-19; Z20.828 Contact with and (suspected) exposure to other viral communicable diseases; Z91.81 History of falling; Z79.899 Other long term (current) drug therapy
CPT/HCPCS: 36415; 51701; 70450; 72070; 72100; 72125; 80048; 80076; 81001; 84484; 85025; 85610; 87086; 87088; 87635; 93005; 97162; 99285